=== PATIENT | male | born 1935 ===

== ENCOUNTER → 2021-02-25 13:45 | Outpatient (BNVA) | payer MEDICARE, OTHER, SELFPAY | PROVIDERS: Family Provider Family Medicine; Visit Provider Orthopaedic Surgery | DX: M54.50 Low back pain, unspecified (principal) | CPT/HCPCS: 72110 ==

== ENCOUNTER 2021-03-10 15:37 | Outpatient (CLI) | payer MEDICARE, OTHER, SELFPAY ==
--- NOTE | 2021-03-10 16:00 | MR_ITS ---
WS: [id number] MRI LUMBAR SPINE NONCONTRAST HISTORY: M54.50 - Low back pain, unspecified COMPARISON: None available. TECHNIQUE: Sagittal and axial multisequence imaging is submitted. 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 Reversal the cervical lordosis centered at C4-5 with severe disc space narrowing. Encroachment upon the ventr al cervical canal. There is a small caliber thoracic canal with multilevel stenoses due to degenerati ve disease. Straightening of the normal lumbar lordosis with LEFT curvature. 5 lumbar type vertebral bodies. The S1 vertebral body is partially lumbarized. Severe degenerative disc disease and disc space narrowing throughout the lumbar spine. There is osteo phytosis and disc bulging and marked facet arthritis. L2 retrolisthesis by 5 mm. Conus terminates normally at L1-2 disc level. L1-L2: Mild annular disc bulging and osteophytic ridging. Shallow central disc protrusion effacing th e ventral CSF. Mild central, subarticular foraminal stenosis. L2-L3: Severe annular disc bulging and osteophytic ridging with moderate ligamentum flavum and facet arthritis. Significant deformity upon the thecal sac with effacement of CSF. Moderate to severe centr al and bilateral subarticular recess stenosis. Moderate foraminal stenosis. There is significant encr oachment upon the traversing L3 nerve roots. L3-L4: Diffuse osteophytic ridging and mild annular disc bulging. Central annular fissure. Severe lig amentum flavum and facet joint arthritis. There is encroachment into the thecal sac causing moderate central and subarticular recess stenosis. Significant encroachment upon the traversing L4 nerve roots . Mild foraminal stenosis. L4-L5: Marked osteophytic ridging and annular disc bulging with severe ligamentum flavum hypertrophy and facet arthritis. Significant deformity encroachment upon the ventral canal. Obliteration of CSF a nd deformity of the nerve roots within the cord. Severe central, bilateral subarticular recess and mo derate foraminal stenosis. There is severe deformity and encroachment upon the traversing L5 nerve ro ots. L5-S1: Marked osteophytic ridging. Ligamentum flavum and facet disease and disc disease. Severe centr al, bilateral subarticular recess and foraminal stenosis. There are disc protrusions in the foramen b ilaterally. There is a rudimentary S1-S2 disc without significant stenosis. Bilateral renal cysts. MR/MR lumbar spine wo con* [id number] IMPRESSION: 1. Advanced degenerative spondylitic changes throughout the lumbar spine. 2. Severe central, bilateral subarticular recess and foraminal stenosis at L5- S1 with marked deformity of the thecal sac and traversing S1 nerve roots. 3. Severe central, bilateral subarticular recess and moderate foraminal stenos is at L4-5. Significant deformity and encroachment upon the traversing L5 nerve roots. 4. Moderate central and subarticular recess stenosis at L3-4 with significant encroachment upon the traversing L4 nerve roots. 5. Moderate to severe central with bilateral subarticular recess stenosis and moderate foraminal stenosis at L2-3 with significant encroachment upon the maira ersing L3 nerve roots. 6. Mild central and subarticular recess stenosis at L1-2.
== END 2021-03-10 15:38 | disposition home or self-care (01) ==
LOC: RADSHAW 15:46
PROVIDERS: PCP Family Medicine; Visit Provider Orthopaedic Surgery
DX: M54.50 Low back pain, unspecified (principal); M48.07 Spinal stenosis, lumbosacral region; M48.061 Spinal stenosis, lumbar region without neurogenic claudication
CPT/HCPCS: 72148

== ENCOUNTER → 2021-03-30 00:01 | Outpatient (BNVA) | payer MEDICARE, OTHER, SELFPAY | PROVIDERS: PCP Family Medicine; Visit Provider Orthopaedic Surgery | DX: Z20.822 Contact with and (suspected) exposure to COVID-19 (principal); Z01.818 Encounter for other preprocedural examination | CPT/HCPCS: 87635 ==

== ENCOUNTER 2021-04-02 05:50 | Day surgery (SDC) | payer MEDICARE, OTHER, SELFPAY ==
--- NOTE | 2021-03-29 10:14 | ECG_ITS ---
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
[2021-03-29 10:37] VITALS: BMI 22.0
--- NOTE | 2021-03-29 11:36 | ANES.PREANE2 ---
Pre-Anesthetic Assessment Pre-Anesthetic Assessment: Height/Weight: Height 1.73 m Weight 65.771 kg Preop Diagnosis: Lumbar stenosis w/ neurogenic claudication Proposed Procedure: Operation Date: 04/02/21 07:00 Proposed Procedures p Lumbar Spine Decompression L3/4 L4/5 M48.062 [id number](Not Applicable) - Lion H Bonita, DO Was Beta Mariusz taken within 24 hours: N/A Was Clonidine taken within 24 hours: N/A Social: Social History: No alcohol and No tobacco Exam: Pre-Anes Outpt Exam: alert, oriented x 3, clear to auscultation bilaterally and regular rate & rhythm Airway: Submandibular: WNL Cervical ROM: Other (Limited head extension, normal flexion, limited rotation and sidebending of neck) MP: 2 Additional comments: Upper dentures History/ROS: Other (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) Pulmonary: Pulmonary: None reported CV/HEM: CV/HEM: None reported : : None reported Hepatic: Hepatic: None reported GI: GI: None reported Metabolic: Metabolic: None reported Musc/skel: Musc/skel: Lower Back Pain and OA/DJD Anesthetic Plan: ASA status: 2 Anesthesia: Anesthesia Evaluation Risk of > 500 ml blood loss (7ml/kg in children): No PFSH Anesthesia PFSH: Family History Other Hypertension Social History Alcohol intake: never Adopted: No Caregiver/support person: Yes Lives independently: Yes Household members: spouse Housing: House Marital status: Number of children: 3 Number of grandchildren: 5 service: No Current occupational status: retired Pets and animals: Yes History of recent travel: No Special ariel needs: No Agree to transfusion: Yes Data Anesthesia Cardiac Studies: No Data to Display
[2021-04-02] VITALS (9 sets, daily range): BP systolic 145–181; BP diastolic 75–88; PULSE 65–102; RESP 9–20; TEMP 36.6–36.8; O2SAT 93–98
--- NOTE | 2021-04-02 | SCC_ITS ---
Procedure Done: 1. Bilateral L3/4 laminectomy with partial facetectomies 2. Bilateral L4/5 laminectomy with partial facetectomies 3. Bilateral L5/S1 laminectomy with partial facetectomies 41.6 seconds of fluoroscopic guidance, for a cumulative dose of 13.30 mGy, was provided to Dr. Mesa by the radiology department. C-arm images of the lumbar spine were saved for the patient's permanent record. [facility]
--- NOTE | 2021-04-02 | XR_ITS ---
WS: [id number] Lumbar spine, C-arm fluoroscopy, 04/02/2021 Clinical Data: Decompression, or pics Comparison: None. Findings: Dr. Mesa performed a lumbar decompression. XR/XR lumbar spine 1V [id number] Impression: Lumbar decompression.
[2021-04-02] MEDS: sodium chloride 0.9% 1,000 ML 30 ML IV (06:27)
--- NOTE | 2021-04-02 06:45 | P.ANESUD_ITS ---
Pre-Anesthetic Update Pre-Anesthetic Assessment: Date of Surgery/Procedure: 04/02/21 Preop Venessa gnosis: Lumbar stenosis L3-S1 Proposed Procedure: Operation Date: 04/02/21 07:00 Proposed Procedures p Lumbar Spine Decompression L3/4 L4/5 M48.062 [id number](Not Applicable) - Lion Mesa, DO Any changes to Pre-Anesthetic Assessment?: No Last Intake: Intake Last Liquid Date 04/01/21 Last Liquid Time 19:00 Last Solid Date 04/01/21 Last Solid Time 19:00 Vitals: Temperature 97.8 F 04/02/21 06:06 Temperature Source Temporal Artery S can 04/02/21 06:06 Pulse Rate 65 04/02/21 06:06 Respiratory Rate 18 04/02/21 06:06 Blood Pressure 175/81 04/02/21 06:06 Blood Pressure Jordana n 112 04/02/21 06:06 Pulse Oximetry 97 04/02/21 06:06 Oxygen Delivery Me thod 04/02/21 06:12 Exam: Pre-Anes Outpt Exam: alert, oriented x 3, clear to auscultation bilaterally and regular rate & rhythm Cardiac Studies: No Data to Display
--- NOTE | 2021-04-02 06:49 | W.PM.OPSUD ---
Surgery/Procedure H&P Update DATE OF PROCEDURE: April 02, 2021 DATE H&P PERFORMED: 03/11/21 H&P UPDATE INFORMATION: I have reviewed H&P completed within last 30 days, I have examined patient prior to procedure and No changes to prior documentation PREOP DIAGNOSIS: Lumbar stenosis L3-S1 PLANNED PROCEDURE: Operation Date: 04/02/21 07:00 Proposed Procedures p Lumbar Spine Decompression L3/4 L4/5 M48.062 [id number](Not Applicable) - Lion Mesa DO
[2021-04-02] MEDS: clindamycin 900 MG/50 ML PREMIX 100 MG IV (06:59)
--- NOTE | 2021-04-02 09:50 | SUR.PHASEI ---
pt awake alert oriented to place and name, vss pt able to move bilat feet to command, monitor SR , not ectopy noted. pt on RA trial.
--- NOTE | 2021-04-02 09:53 | PM.OP ---
Operative Report Date of procedure: April 02, 2021 Pre-op Diagnosis: Lumbar stenosis with neurogenic claudication Post-op diagnosis: same Procedure Done: 1. Bilateral L3/4 laminectomy with partial facetectomies 2. Bilateral L4/5 laminectomy with partial facetectomies 3. Bilateral L5/S1 laminectomy with partial facetectomies Surgeon: Lion Mesa External Relations Director: Tyrone Weldon External Relations Director: The surgical endoscopist, Tyrone Weldon, PAC was needed for his expertise under the microscope. He was important and necessary throughout the procedure to complete in a safe and timely manner. He assisted with patient positioning prepping and draping tissue retraction suctioning of the operative field protection of the dural sac and tissue closure Anesthesia: General Estimated blood loss (mL): 25 Condition: stable Disposition: PACU Procedure: 1. Bilateral L3/4 laminectomy with partial facetectomies 2. Bilateral L4/5 laminectomy with partial facetectomies 3. Bilateral L5/S1 laminectomy with partial facetectomies Patient is brought to the operative suite. After undergoing anesthesia they are placed in the prone position. All areas of impingement are well padded. Patient is then prepped and draped in the normal sterile fashion. A skin incision is made over the L3/4 level. This is confirmed under c-arm guidance. A series of dilators are passed and the tubular retractor is docked on the L3 lamina. A bovie is used to clear the soft tissue off the lamina and the L 3/4 facet joint. A high speed marques is then used to perform the laminectomy and take down the medial aspect of the L 3/4 facet joint. A kerrison rongeure was then used to take down the remaining lamina and smooth the edged of the laminectomy up to the point where the ligamentum flavum attaches. Attention was then brought to the medial aspect of the facet joint. The remaining medial aspect of the superior and inferior aspect of the facet joint were taken down with the kerrison from the pedicle of L3 to L 4. The facet joint had significant hypertrophy. Attention was then brought to the Ligamentum Flavum. The ligament was taken down from the lamina of L3 to L4 and out medially to the remaining facet joint. The ligament was thick. The dura was then exposed. The dura was in good repair. The L3 nerve was then traced with a curette out the L3/4 foramen and found to be adequately decompressed. The L4 nerve was traced with a curette around the L4 pedicle. The lateral recess was opened with a kerrison helping to further decompress the L4 nerve. The tubular retractor was then tilted to the contralateral side. The bovie was used to take down the soft tissue on the spinous process. The high speed marques was used to take down the spinous process and then the contralateral lamina of L3. The kerrison rongeur was used to take down the remaining lamina to the point where the ligamentum flavum attached and the ligamentum flavum was taken down from L3 to L4. The kerrison rongeur was then used to reach across and take down the medial aspect of the contralateral L3/4 facet joint.The currete was used to trace the contralateral L3 nerve out the L3/4 foramen to make sure it was decompressed adequatesly and the L4 was traced around the L4 pedicle. The lateral recess was opened further with the kerrison to ensure the L4 is adequately decompressed. Wound is then irrigated copiously with saline and surgiflo is used to stop any bleeding. The tubular retractor is removed and A skin incision is made over the L4/5 level. This is confirmed under c-arm guidance. A series of dilators are passed and the tubular retractor is docked on the L4 lamina. A bovie is used to clear the soft tissue off the lamina and the L 4/5 facet joint. A high speed marques is then used to perform the laminectomy and take down the medial aspect of the L 4/5 facet joint. A kerrison rongeure was then used to take down the remaining lamina and smooth the edged of the laminectomy up to the point where the ligamentum flavum attaches. Attention was then brought to the medial aspect of the facet joint. The remaining medial aspect of the superior and inferior aspect of the facet joint were taken down with the kerrison from the pedicle of L4 to L 5. The facet joint had significant hypertrophy. Attention was then brought to the Ligamentum Flavum. The ligament was taken down from the lamina of L4 to L5 and out medially to the remaining facet joint. The ligament was thick. The dura was then exposed. The dura was in good repair. The L4 nerve was then traced with a curette out the L4/5 foramen and found to be adequately decompressed. The L5 nerve was traced with a curette around the L5 pedicle. The lateral recess was opened with a kerrison helping to further decompress the L5 nerve. The tubular retractor was then tilted to the contralateral side. The bovie was used to take down the soft tissue on the spinous process. The high speed marques was used to take down the spinous process and then the contralateral lamina of L4. The kerrison rongeur was used to take down the remaining lamina to the point where the ligamentum flavum attached and the ligamentum flavum was taken down from L4 to L5. The kerrison rongeur was then used to reach across and take down the medial aspect of the contralateral L4/5 facet joint.The currete was used to trace the contralateral L4 nerve out the L4/5 foramen to make sure it was decompressed adequatesly and the L5 was traced around the L5 pedicle. The lateral recess was opened further with the kerrison to ensure the L5 is adequately decompressed. Wound is then irrigated copiously with saline and surgiflo is used to stop any bleeding. The tubular retractor is removed and A skin incision is made over the L5/S1 level. This is confirmed under c-arm guidance. A series of dilators are passed and the tubular retractor is docked on the L5 lamina. A bovie is used to clear the soft tissue off the lamina and the L 5/S1 facet joint. A high speed marques is then used to perform the laminectomy and take down the medial aspect of the L 5/S1 facet joint. A kerrison rongeure was then used to take down the remaining lamina and smooth the edged of the laminectomy up to the point where the ligamentum flavum attaches. Attention was then brought to the medial aspect of the facet joint. The remaining medial aspect of the superior and inferior aspect of the facet joint were taken down with the kerrison from the pedicle of L5 to S1. The facet joint had significant hypertrophy. Attention was then brought to the Ligamentum Flavum. The ligament was taken down from the lamina of L5 to S1 and out medially to the remaining facet joint. The ligament was thick. The dura was then exposed. The dura was in good repair. The L5 nerve was then traced with a curette out the L5/S1 foramen and found to be adequately decompressed. The S1 nerve was traced with a curette around the S1 pedicle. The lateral recess was opened with a kerrison helping to further decompress the S1 nerve. The tubular retractor was then tilted to the contralateral side. The bovie was used to take down the soft tissue on the spinous process. The high speed marques was used to take down the spinous process and then the contralateral lamina of L5. The kerrison rongeur was used to take down the remaining lamina to the point where the ligamentum flavum attached and the ligamentum flavum was taken down from L5 to S1. The kerrison rongeur was then used to reach across and take down the medial aspect of the contralateral L5/S1 facet joint.The currete was used to trace the contralateral L5 nerve out the L5/S1 foramen to make sure it was decompressed adequatesly and the S1 was traced around the S1 pedicle. The lateral recess was opened further with the kerrison to ensure the S1 is adequately decompressed. Wound is then irrigated copiously with saline and surgiflo is used to stop any bleeding. The tubular retractor is removed and the wound is closed with vicryl and monocryl suture. Glue is then used to protect the wound. A sterile dressing is then placed. Patient was then placed in the supine position and transferred to the PACU in stable condition.
[2021-04-02] MEDS: HYDROcodone-acetaminophen 5-325 mg Tablet 1 TAB PO (10:45)
--- NOTE | 2021-04-02 12:11 | ANE.PACU2 ---
Inpatient post-anesthesia follow up: Airway intact: Yes Vital signs: Temperature 98.2 F Pulse Rate 90 Respiratory Rate 18 Blood Pressure 148/88 Pulse Oximetry 95 Oxygen Delivery Me thod Room Air Oxygen Flow Rate 6 Fraction of Inspir ed Oxygen Hydration adequate: Yes Nausea and vomiting: No Pain level: 3 Mental status: Baseline
== END 2021-04-02 10:50 | disposition home or self-care (01) ==
PROVIDERS: PCP Family Medicine; Visit Provider Orthopaedic Surgery
PROC: (CPT 63005; principal; 2021-04-02 07:00)
DX: M48.062 Spinal stenosis, lumbar region with neurogenic claudication (principal); M51.36 Other intervertebral disc degeneration, lumbar region; M79.661 Pain in right lower leg; M79.662 Pain in left lower leg; Z88.0 Allergy status to penicillin; Z79.82 Long term (current) use of aspirin
CPT/HCPCS: 63047; 63048 ×2; 72020; 76000; 93005; J1100; J2405; J2704; J2710; J3010; J3490; J7030

== ENCOUNTER → 2021-04-07 16:53 | Outpatient (BNVA) | payer MEDICARE, OTHER, SELFPAY | PROVIDERS: PCP Family Medicine; Visit Provider Nurse Practitioner Family | DX: R33.9 Retention of urine, unspecified (principal) | CPT/HCPCS: 81003 ==

== ENCOUNTER → 2021-09-14 10:24 | Outpatient (BNVA) | payer MEDICARE, OTHER, SELFPAY | PROVIDERS: PCP Family Medicine; Visit Provider Urology | DX: N40.1 Benign prostatic hyperplasia with lower urinary tract symptoms (principal); N30.80 Other cystitis without hematuria; R82.81 Pyuria; R82.71 Bacteriuria; N99.89 Other postprocedural complications and disorders of genitourinary system; R33.8 Other retention of urine | CPT/HCPCS: 51798; 81003; 87077; 87086; 87186; 99213 ==

== ENCOUNTER → 2022-09-13 08:59 | Outpatient (BNVA) | payer MEDICARE, OTHER, SELFPAY | PROVIDERS: PCP Family Medicine; Visit Provider Urology | DX: N40.1 Benign prostatic hyperplasia with lower urinary tract symptoms (principal); R33.9 Retention of urine, unspecified | CPT/HCPCS: 51741; 51798; 81003; 99213 ==

== ENCOUNTER 2022-10-02 18:56 | Inpatient (IN) | payer MEDICARE, OTHER, SELFPAY ==
[2022-10-02] VITALS (11 sets, daily range): BP systolic 135–168; BP diastolic 68–84; PULSE 82–92; RESP 12–29; TEMP 36.9–38.8; O2SAT 94–98; BMI 22.0
--- NOTE | 2022-10-02 19:42 | CTR_ITS ---
PROCEDURE INFORMATION: Exam: CT Cervical Spine Without Contrast Exam date and time: 10/02/2022 7:58 PM Age: 87 years old Clinical indication: Injury or trauma; Fall; Blunt trauma; Patient HX: Patient fell at home onto bathroom floor landing on RT side. C/O neck pain. Fever. ; Additional info: Fall neck pain TECHNIQUE: Imaging protocol: Computed tomography of the cervical spine without contrast. Radiation optimization: All CT scans at this facility use at least one of these dose optimization techniques: automated exposure control; mA and/or kV adjustment per patient size (includes targeted exams where dose is matched to clinical indication); or iterative reconstruction. REPORTING DATA: Count of CT and Cardiac NM exams in prior 12 months: This patient has received 0 known CTs and 0 known cardiac nuclear medicine studies in the 12 months prior to the current study. COMPARISON: CT head wo con* [id number] 10/02/2022 7:56 PM RADIATION DOSE METRICS: Total DLP (mGy-cm): 137.87 FINDINGS: Bones/joints: Multilevel disc space narrowing and degenerative disc calcifications throughout the spine. C2-C3: No significant disc bulge or herniation. No severe spinal canal stenosis. No significant neural foraminal narrowing. C3-C4: No significant disc bulge or herniation. No severe spinal canal stenosis. No significant neural foraminal narrowing. C4-C5: No significant disc bulge or herniation. No severe spinal canal stenosis. No significant neural foraminal narrowing. C5-C6: No significant disc bulge or herniation. No severe spinal canal stenosis. No significant neural foraminal narrowing. C6-C7: No significant disc bulge or herniation. No severe spinal canal stenosis. No significant neural foraminal narrowing. C7-T1: No significant disc bulge or herniation. No severe spinal canal stenosis. No significant neural foraminal narrowing. Lungs: Lung apices are normal. Soft tissues: Unremarkable. CT/CT cervical spin wo con* [id number] IMPRESSION: 1. Negative for fracture or dislocation. 2. Multilevel disc space narrowing and degenerative disc calcifications throughout the spine.
--- NOTE | 2022-10-02 19:42 | CTR_ITS ---
PROCEDURE INFORMATION: Exam: CT Chest Without Contrast; Diagnostic Exam date and time: 10/02/2022 8:01 PM Age: 87 years old Clinical indication: Injury or trauma; Fall; Blunt trauma (contusions or hematomas); Patient HX: Patient fell at home onto bathroom floor landing on RT side. C/O RT sided rib pain. Fever. ; Additional info: Fall right sided rib pain TECHNIQUE: Imaging protocol: Diagnostic computed tomography of the chest without contrast. Radiation optimization: All CT scans at this facility use at least one of these dose optimization techniques: automated exposure control; mA and/or kV adjustment per patient size (includes targeted exams where dose is matched to clinical indication); or iterative reconstruction. REPORTING DATA: Count of CT and Cardiac NM exams in prior 12 months: This patient has received 0 known CTs and 0 known cardiac nuclear medicine studies in the 12 months prior to the current study. COMPARISON: CT cervical spin wo con* [id number] 10/02/2022 7:58 PM RADIATION DOSE METRICS: Total DLP (mGy-cm): 1012.68 FINDINGS: Lungs: Moderate right pneumothorax with 2.3 cm separation between the lung and pleura, anteriorly. Pleural spaces: See Lungs finding. Heart: Cardiomegaly. Coronary arteries: Coronary artery atherosclerotic calcifications. Lymph nodes: Scattered prominent subcentimeter short axis mediastinal lymph nodes, nonspecific. Vasculature: Patchy bilateral dependent lower lobe atelectasis versus pulmonary contusions. 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 Kidneys and ureters: Bilateral renal cysts, negative for follow-up advised. Stomach and bowel: Diverticulosis without diverticulitis Bones/joints: Right lateral 7th and possibly 8th rib fractures. Soft tissues: Unremarkable. CT/CT chest wo con [id number] IMPRESSION: 1. Moderate right pneumothorax with 2.3 cm separation between the lung and pleura, anteriorly. 2. Patchy bilateral dependent lower lobe atelectasis versus pulmonary contusions. 3. Right lateral 7th and possibly 8th rib fractures. 4. 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 5. Cardiomegaly. 6. Coronary artery atherosclerotic calcifications. 7. Scattered prominent subcentimeter short axis mediastinal lymph nodes, nonspecific. 8. Bilateral renal cysts, negative for follow-up advised. 9. Diverticulosis without diverticulitis COMMENTS: Consistent with the [employer]'s Incidental Findings Committee white paper (J Am Megan Radiol 2018): Any incidental renal lesion less than 1 cm or classified as too small to characterize, or any incidental cystic renal lesion characterized as simple-appearing, is likely benign. No follow-up imaging is recommended for these lesions per consensus recommendations based on imaging criteria.
--- NOTE | 2022-10-02 19:42 | CTR_ITS ---
PROCEDURE INFORMATION: Exam: CT Head Without Contrast Exam date and time: 10/02/2022 7:56 PM Age: 87 years old Clinical indication: Injury or trauma; Fall; Blunt trauma (contusions or hematomas); Patient HX: Patient fell at home onto bathroom floor landing on RT side. Fever. ; Additional info: Fall head inj TECHNIQUE: Imaging protocol: Computed tomography of the head without contrast. Radiation optimization: All CT scans at this facility use at least one of these dose optimization techniques: automated exposure control; mA and/or kV adjustment per patient size (includes targeted exams where dose is matched to clinical indication); or iterative reconstruction. REPORTING DATA: Count of CT and Cardiac NM exams in prior 12 months: This patient has received 0 known CTs and 0 known cardiac nuclear medicine studies in the 12 months prior to the current study. COMPARISON: No relevant prior studies available. RADIATION DOSE METRICS: Total DLP (mGy-cm): 1012.68 FINDINGS: Brain: No acute infarct. No hemorrhage. Unremarkable white matter for age. No mass effect. Cerebral ventricles: No ventriculomegaly. Paranasal sinuses: Visualized sinuses are unremarkable. No fluid levels. Mastoid air cells: Visualized mastoid air cells are well aerated. Bones/joints: Unremarkable. No acute fracture. Soft tissues: Unremarkable. CT/CT head wo con* [id number] IMPRESSION: No acute intracranial abnormality.
--- NOTE | 2022-10-02 19:58 | ED_ITS ---
HPI - Fall General: Chief Complaint: Fall Stated Complaint: Fall, fever Time Seen by Provider: 10/02/22 19:15 Source: patient History of Present Illness: 87-year-old male gentleman with multiple complaints today after a fall in his bathroom. He states that he fell in his bathroom, striking his right side on the shower. He complains of pain to his right chest wall, worse with deep breathing and cough. He also complains of neck pain. He believes he may have hit his head, but is not sure. He states that he does not have a headache. He also complains of foul-smelling strong urine. His states that he had a fever, measured by a neighbor this afternoon at 104 . He is afebrile here. complaint: fall Onset (ago): hour(s) (2 PM) Fall from: standing Fall witnessed: yes, by family Place fall occurred: home Loss of consciousness: None Prolonged down time: no Symptoms prior to fall: none Context: other (Loss of balance) Location of injury: head, neck and chest Quality: stabbing and aching Associated symptoms-after fall: Reports chest pain, neck pain and weakness (Chronic); Denies abdominal pain, confusion, headache(s), hematuria, lightheadedness, numbness or short of breath Review of Systems Const: Reports: fever(s); Denies: chills or body aches Eyes: Denies: change in vision ENMT: Denies: throat pain Card: Reports: chest pain; Denies: lightheadedness Resp: Reports: productive cough, non-productive cough and pain on inspiration; Denies: dyspnea GI: Denies: abdominal pain : Reports: urinary frequency and other (Foul-smelling urine); Denies: flank pain, difficulty urinating, dysuria or hematuria Musc: Reports: neck pain Neuro: Denies: headache(s) or confusion PFSH ED PFSH: Medical History 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 Bladder followed by [facility] initiated Family History Father , AT 74 Heart disease Mother , AT 96 Stroke Other Hypertension Social History Smoking and tobacco status: never smoked Alcohol intake: never Substance/Drug Use: never Marital status: Current occupational status: retired Physical Exam Const: COMMON NORMALS: no acute distress GENERAL APPEARANCE: cooperative and frail appearing; not ill appearing HENMT: COMMON NORMALS: normocephalic, atraumatic and Normal external nose present HEAD & SCALP: normocephalic and atraumatic FACE & SINUS: normal facial exam and face symmetric NOSE: Normal external nose present Eye: COMMON NORMALS: Equal, round and reactive pupils present and EOMs intact bilaterally PUPIL: Yes Equal, round and reactive pupils present Neck/C-Spine: GENERAL: Yes trachea midline Chest: CHEST: Yes Symmetrical chest wall rise and Yes tenderness (Right chest wall laterally) Resp: COMMON NORMALS: normal respiratory effort, No retractions, No use of accessory muscles and clear to auscultation bilaterally AUSCULTATION: clear to auscultation bilaterally Cardio: COMMON NORMALS: regular rate and regular rhythm RATE: regular rate RHYTHM: regular rhythm GI: COMMON NORMALS: Normal to inspection, nondistended, normoactive bowel sounds present Back/Pelvis: THORACIC SPINE/UPPER BACK: No thoracic spinal tenderness LUMBAR SPINE/LOWER BACK: No lumbar spinal tenderness Extremity: COMMON NORMALS: normal to inspection and no pedal edema NARRATIVE EXTREMITY EXAM: Atraumatic Neuro: TIGIST COMA SCALE: document GCS findings [place] coma scale eye opening: Spontaneous [place] coma scale verbal response: Orientated [place] coma scale motor response: Obey commands [place] coma scale total score: 15 SENSORY EXAM: Yes extremities (intact) Psych: COMMON NORMALS: speech normal SPEECH: Yes normal speech Skin: COMMON NORMALS: no rashes or lesions noted GENERAL SKIN EXAM: no rashes or lesions noted Course Vital Signs: Vital signs: Vital Signs Temperature 99.3 F 10/02/22 22:37 Pulse Rate 82 10/02/22 23:15 Respiratory Rate 22 H 10/02/22 23:15 Blood Pressure 163/68 10/02/22 23:15 Pulse Oximetry 97 10/02/22 23:15 Oxygen Delivery Me thod Nasal Cannula 10/02/22 23:15 Oxygen Flow Rate 3 10/02/22 23:15 MDM - Fall Medical Decision Making Spoke with cardiothoracic surgery. The patient has a right pneumothorax that is 20 to 25%. His saturation on room air is 95%. He is in no respiratory distress. His blood pressure is normal. I am reluctant to put an emergent chest tube in the patient with stable vital signs he was 87 years old. CTS agrees. They will consult on the patient, be available for worsening respiratory status, and recheck a chest x-ray in the morning to determine if pneumothorax is improving or worsening. If worsening, elective Thora vent placement could happen at that point versus expectant management The patient does have a urinary tract infection with a fever. His white blood cell count is 12.6. Lactic acid is pending. CRP is 44. He is given IV L evaquin here due to a penicillin allergy. Blood cultures been drawn prior. He will be admitted for the above. Spoke with hospitalist who agrees to admit. Lab Data 10/02/22 20:30 10/02/22 20:30 Radiology Impressions Cervical Spine CT 10/02/22 19:42 IMPRESSION: 1. Negative for fracture or dislocation. 2. Multilevel disc space narrowing and degenerative disc calcifications throughout the spine. Chest CT 10/02/22 19:42 IMPRESSION: 1. Moderate right pneumothorax with 2.3 cm separation between the lung and pleura, anteriorly. 2. Patchy bilateral dependent lower lobe atelectasis versus pulmonary contusions. 3. Right lateral 7th and possibly 8th rib fractures. 4. 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 5. Cardiomegaly. 6. Coronary artery atherosclerotic calcifications. 7. Scattered prominent subcentimeter short axis mediastinal lymph nodes, nonspecific. 8. Bilateral renal cysts, negative for follow-up advised. 9. Diverticulosis without diverticulitis COMMENTS: Consistent with the [employer]'s Incidental Findings Committee white paper (J Am Megan Radiol 2018): Any incidental renal lesion less than 1 cm or classified as too small to characterize, or any incidental cystic renal lesion characterized as simple-appearing, is likely benign. No follow-up imaging is recommended for these lesions per consensus recommendations based on imaging criteria. ADDENDUM: 10/02/222024 THIS REPORT CONTAINS FINDINGS THAT MAY BE CRITICAL TO PATIENT CARE. The findings were verbally communicated via telephone conference with NICK VIERA at 8:22 PM CDT on 10/02/2022. The findings were acknowledged and understood. Head CT 10/02/22 19:42 IMPRESSION: No acute intracranial abnormality. Laboratory Results WBC 12.6 10^3/uL (4.0-10.0) H 10/02/22 20: RBC 4.88 10^6/uL (4.1-5.3) 10/02/22 20:30 Hgb 15.5 g/dL (11.7-16.6) 10/02/22 20: Hct 45.7 % (42.0-52.0) 10/02/22 20: MCV 93.6 fl (80-94) 10/02/22 20: MCH 31.8 pg (28.0-34.0) 10/02/22 20: MCHC 33.9 g/dL (30.0-36.0) 10/02/22 20: RDW 13.8 % (12.1-15.1) 10/02/22 20: Plt Count 128 10^3/cmm (130-400) L 10/02/22: MPV 9.0 fL (7.4-10.4) 10/02/22 20: Neut % (Auto) 80.1 % 10/02/22 20: Lymph % (Auto) 12.8 % 10/02/22 20: [place] % (Auto) 6.1 % 10/02/22 20: Eos % (Auto) 0.2 % 10/02/22 20: Baso % (Auto) 0.2 % 10/02/22 20:30 Neut # (Auto) 10.06 10^3/uL (1.8-7.7) H 10/02/22 20: Lymph # (Auto) 1.6 10^3/uL (0.8-4.8) 10/02/22 20:30 [place] # (Auto) 0.8 10^3/uL (0.2-0.9) 10/02/22 20: Eos # (Auto) 0.0 10^3/uL (0.0-0.8) 10/02/22 20: Baso # (Auto) 0.0 10^3/uL (0.0-0.1) 10/02/22 20: Nucleated RBC % (auto) 0 % 10/02/22 20:30 Nucleated RBCs # 0.0 /100WBC 10/02/22 20:30 Sodium 136 mmol/L (136-145) 10/02/22 20:30 Potassium 4.4 mmol/L (3.5-5.1) 10/02/22 20:30 Chloride 103 mmol/L (98-107) 10/02/22 20:30 Carbon Dioxide 24 mmol/L (22-29) 10/02/22 20:30 Anion Gap 13.4 (5-19) 10/02/22 20:30 BUN 25 mg/dL (8-23) H 10/02/22 20:30 Creatinine 1.1 mg/dL (0.7-1.2) 10/02/22 20:30 GFR Calculation Not Reportable 10/02/22 20:30 Glucose 114 mg/dL (65-115) 10/02/22 20:30 Calculated Osmolality 287 mOsm/kg (285-295) 10/02/22 20:30 Lactic Acid 0.9 mmol/L (0.5-2.2) 10/02/22 20:30 Calcium 8.5 mg/dL (8.5-10.5) 10/02/22 20:30 Total Bilirubin 1.0 mg/dL (0.15-1.2) 10/02/22 20:30 AST 45 U/L (0-40) H 10/02/22 20:30 ALT 34 U/L (0-41) 10/02/22 20:30 Alkaline Phosphatase 91 U/L (40-130) 10/02/22 20:30 Creatine Kinase 99 U/L (39-308) 10/02/22 20:30 C-Reactive Protein 44.4 mg/L (0.0-4.9) H 10/02/22 20:30 Total Protein 6.5 g/dL (6.6-8.7) L 10/02/22 20:30 Albumin 4.3 g/dL (3.5-5.2) 10/02/22 20:30 Globulin 2.2 g/dL (1.3-4.6) 10/02/22 20:30 Urine Color Yellow (Yellow) 10/02/22 19:18 Urine Appearance Cloudy (CLEAR) A 10/02/22 19:18 Urine pH 8 (5-7) H 10/02/22 19:18 Ur Specific [place] 1.010 (1.005-1.030) 10/02/22 19:18 Urine Protein Trace (Negative) 10/02/22 19:18 Urine Glucose (UA) Norm (Normal) 10/02/22 19:18 Urine Ketones Negative (Negative) 10/02/22 19:18 Urine Blood 2+ (Negative) H 10/02/22 19:18 Urine Nitrate Negative (Negative) 10/02/22 19:18 Urine Bilirubin Neg (Negative) 10/02/22 19:18 Urine Urobilinogen 8 mg/dL (Negative) H 10/02/22 19:18 Ur Leukocyte Esterase 1+ (Negative) H 10/02/22 19:18 Urine RBC 0-4 /hpf (0-2) H 10/02/22 19:18 Urine WBC 80-100 /hpf (0-5) H 10/02/22 19:18 Ur Squamous Epith Cells 0-4 /hpf (0-5) H 10/02/22 19:18 Amorphous Sediment Not Reportable 10/02/22 19:18 Urine Bacteria 4+ /hpf (NONE) H 10/02/22 19:18 Discharge Plan Discharge Patient Disposition: Admitted As Inpatient Admit Provider: Jay Zapata Clinical Impression: Traumatic fracture of ribs of right side with pneumothorax, Urinary tract infection Condition: Fair Coding Level of Care Code ED Chimney Repairer for Prabhjot Rene
[2022-10-02 20:40] LABS: Basophils % 0.2 %; Eosinophils % 0.2 %; Hematocrit 45.7 % (42.0-52.0); Hemoglobin 15.5 g/dL (11.7-16.6); Lymphocytes # 1.6 10^3/uL (0.8-4.8); Lymphocytes % 12.8 %; Mean Corpuscular HGB Conc 33.9 g/dL (30.0-36.0); Mean Corpuscular Hemoglobin 31.8 pg (28.0-34.0); Mean Corpuscular Volume 93.6 fl (80-94); Monocytes # 0.8 10^3/uL (0.2-0.9); Monocytes % 6.1 %; Neutrophils # 10.06 10^3/uL (1.8-7.7); Neutrophils % 80.1 %; Nucleated Red Blood Cells % 0 %; Platelet Count 128 10^3/cmm (130-400); Red Blood Count 4.88 10^6/uL (4.1-5.3); Red Cell Distribution Width 13.8 % (12.1-15.1); White Blood Count 12.6 10^3/uL (4.0-10.0)
[2022-10-02 20:46] LABS: Add Urine Microscopic? YES; Bilirubin Urine Neg (Negative); Blood Urine 2+ (Negative); Glucose Urine UA Norm (Normal); Ketones Urine Negative (Negative); Leukocyte Esterase Urine 1+ (Negative); Nitrate Urine Negative (Negative); Protein Urine Trace (Negative); Urine Appearance Cloudy (CLEAR); Urine Color Yellow (Yellow); Urobilinogen Urine 8 mg/dL (Negative); pH Urine 8 (5-7)
[2022-10-02 20:48] LABS: Add Urine Culture? Yes; Bacteria Urine 4+ /hpf; RBC Urine 0-4 /hpf (0-2); Squamous Epithelial Cell Urine 0-4 /hpf (0-5); WBC Urine 80-100 /hpf (0-5)
[2022-10-02 20:53] LABS: Alanine Aminotransferase 34 U/L (0-41); Albumin Level 4.3 g/dL (3.5-5.2); Alkaline Phosphatase 91 U/L (40-130); Anion Gap 13.4 (5-19); Aspartate Amino Transferase 45 U/L (0-40); Blood Urea Nitrogen 25 mg/dL (8-23); C Reactive Protein 44.4 mg/L (0.0-4.9); Calcium 8.5 mg/dL (8.5-10.5); Carbon Dioxide 24 mmol/L (22-29); Chloride 103 mmol/L (98-107); Creatine Phosphokinase 99 U/L (39-308); Globulin 2.2 g/dL (1.3-4.6); Glucose 114 mg/dL (65-115); Osmolality Calculated 287 mOsm/kg (285-295); Potassium 4.4 mmol/L (3.5-5.1); Sodium 136 mmol/L (136-145); Total Protein 6.5 g/dL (6.6-8.7)
[2022-10-02] MEDS: levofloxacin-dextrose 5 % 750 MG/150 ML PREMIX 100 MG IV (22:05)
[2022-10-02 22:23] LABS: Lactic Sepsis W/Reflex 0.9 mmol/L (0.5-2.2)
--- NOTE | 2022-10-02 23:51 | PM.HP ---
Providers/Chief Complaint Admitting Physician: Betsy Chen MD Primary Care Provider: Andrea Carreno MD Chief Complaint: Fall, fever History of Present Illness Roc Arreaga is a 87 year old male with a past medical history of BPH and urinary retention presenting to the emergency room today with chief complaints of sustaining a fall earlier this evening. Patient states that he accidentally fell in the shower and hit the right side of his chest on the bathtub. Thereafter he has been complaining of tenderness over the right chest wall made worse especially by taking a deep breath and coughing. Minimal movement triggers the pain. He is uncertain if he also struck his head. He has been feeling unwell over the past day or so with fever up to 104 Fahrenheit and some subjective chills. Review of Systems General: Reports: 10 or more systems reviewed and unremarkable except in HPI and below Const: Denies: fever(s), chills or body aches Eyes: Denies: change in vision, blurry vision or photophobia ENMT: Reports: hoarseness; Denies: throat pain, enlarged tonsils, odynophagia or nasal congestion Card: Denies: chest pain, palpitations, irregular heart rhythm, edema, swelling of feet/ankles, lightheadedness, pre-syncope, dyspnea on exertion or orthopnea Resp: Denies: dyspnea, productive cough, non-productive cough, wheezing, stridor, pain on inspiration, change in phlegm color, hemoptysis or chest congestion GI: Denies: abdominal pain, nausea, vomiting, hematemesis, coffee ground emesis, dysphagia, heartburn, diarrhea, constipation, GI cramping, change in stool character, hematochezia or melena : Denies: flank pain, dysuria, urinary frequency, urinary urgency, urinary hesitancy or hematuria Musc: Denies: neck pain, back pain, extremity pain, joint swelling, joint warmth or deformity Neuro: Denies: headache(s), numbness in extremities, weakness in extremities, sensory changes, difficulty walking, frequent falls, dizziness, vertigo, behavioral changes, Slurred speech present or seizure-like activity Psych: Denies: anxiety, depression, suicidal ideation or homicidal ideation Endo: Denies: polyuria, polydipsia, tired all the time, cold intolerance or hot flashes [place]/Lymph: Denies: easy bruising or easy bleeding Medications/Allergies Home Medications Medication Instructions Recorded Confirmed Last Taken Type aspirin 325 mg tablet 325 mg PO DAILY 02/25/21 09/13/22 03/30/21 History hydrocodone 5 mg-acetaminophen 325 1 - 2 tab PO .Q4-6H #40 tabs 04/02/21 09/13/22 Unknown Rx mg tablet vitamin B complex (B 1 tab PO DAILY 04/22/21 09/13/22 Unknown History Complex-Vitamin B12 tablet) ciprofloxacin HCl 500 mg tablet 500 mg PO BID #14 tabs 09/14/21 09/13/22 Unknown Rx tamsulosin 0.4 mg capsule See Rx Instructions .Route 09/13/22 09/13/22 Unknown Rx .COMPLEX #90 caps Allergies Allergy/AdvReac Type Severity Reaction Status Date / Time Penicillins Allergy Mild rash-shortness Verified 10/02/22 19:03 of breath PFSH Acute PFSH: Medical History 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 Bladder followed by [facility] initiated Family History Father , AT 74 Heart disease Mother , AT 96 Stroke Other Hypertension Social History Smoking and tobacco status: never smoked Alcohol intake: never Substance/Drug Use: never Marital status: Current occupational status: retired Vitals/I&O/Wt Last Vital Signs Temp 99.3 F 10/02/22 22:37 Pulse 82 10/02/22 23:15 Resp 22 H 10/02/22 23:15 BP 163/68 10/02/22 23:15 Pulse Ox 97 10/02/22 23:15 O2 Del Method Nasal Cannula 10/02/22 23:15 O2 Flow Rate 3 10/02/22 23:15 10/02/22 10/02/22 10/03/22 14:59 22:59 06:59 Output Total 20 / 20 Balance -20 / -20 Weight last 48 hrs Weight 65.771 kg Physical Exam Narrative: General: No acute distress, AO x3 HEENT: PERRLA, pupils bilaterally equal and reactive, pallors not present Chest: Normal vesicular breath sounds, no added sounds, equal good air entry bilaterally CVS: S1-S2 regular, no murmurs, no tachycardia, no gallops, no rubs Abdomen: Soft, nontender, no organomegaly, bowel sounds present Neuro: No focal deficits, no facial deformity, AO x3, power 5/5 in all limbs Data 10/03/22 04:15 10/03/22 04:15 Micro: Microbiology 10/02/22 21:17 Blood Culture - Preliminary Blood SPECIMEN COLLECTED 10/02/22 21:14 Blood Culture - Preliminary Blood SPECIMEN COLLECTED Other data: Radiology Impressions Cervical Spine CT 10/02/22 19:42 IMPRESSION: 1. Negative for fracture or dislocation. 2. Multilevel disc space narrowing and degenerative disc calcifications throughout the spine. Chest CT 10/02/22 19:42 IMPRESSION: 1. Moderate right pneumothorax with 2.3 cm separation between the lung and pleura, anteriorly. 2. Patchy bilateral dependent lower lobe atelectasis versus pulmonary contusions. 3. Right lateral 7th and possibly 8th rib fractures. 4. 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 5. Cardiomegaly. 6. Coronary artery atherosclerotic calcifications. 7. Scattered prominent subcentimeter short axis mediastinal lymph nodes, nonspecific. 8. Bilateral renal cysts, negative for follow-up advised. 9. Diverticulosis without diverticulitis COMMENTS: Consistent with the [employer]'s Incidental Findings Committee white paper (J Am Megan Radiol 2018): Any incidental renal lesion less than 1 cm or classified as too small to characterize, or any incidental cystic renal lesion characterized as simple-appearing, is likely benign. No follow-up imaging is recommended for these lesions per consensus recommendations based on imaging criteria. ADDENDUM: 10/02/222024 THIS REPORT CONTAINS FINDINGS THAT MAY BE CRITICAL TO PATIENT CARE. The findings were verbally communicated via telephone conference with JAIMEE VIERA at 8:22 PM CDT on 10/02/2022. The findings were acknowledged and understood. Head CT 10/02/22 19:42 IMPRESSION: No acute intracranial abnormality. Laboratory Results WBC 13.7 10^3/uL (4.0-10.0) H 10/03/22 04:15 RBC 4.72 10^6/uL (4.1-5.3) 10/03/22 04:15 Hgb 14.7 g/dL (11.7-16.6) 10/03/22 04:15 Hct 43.7 % (42.0-52.0) 10/03/22 04:15 MCV 92.6 fl (80-94) 10/03/22 04:15 MCH 31.1 pg (28.0-34.0) 10/03/22 04:15 MCHC 33.6 g/dL (30.0-36.0) 10/03/22 04:15 RDW 13.8 % (12.1-15.1) 10/03/22 04:15 Plt Count 113 10^3/cmm (130-400) L 10/03/22 04:15 MPV 9.6 fL (7.4-10.4) 10/03/22 04:15 Neut % (Auto) 80.2 % 10/03/22 04:15 Lymph % (Auto) 12.8 % 10/03/22 04:15 [place] % (Auto) 6.3 % 10/03/22 04:15 Eos % (Auto) 0.1 % 10/03/22 04:15 Baso % (Auto) 0.2 % 10/03/22 04:15 Neut # (Auto) 11.02 10^3/uL (1.8-7.7) H 10/03/22 04:15 Lymph # (Auto) 1.8 10^3/uL (0.8-4.8) 10/03/22 04:15 [place] # (Auto) 0.9 10^3/uL (0.2-0.9) 10/03/22 04:15 Eos # (Auto) 0.0 10^3/uL (0.0-0.8) 10/03/22 04:15 Baso # (Auto) 0.0 10^3/uL (0.0-0.1) 10/03/22 04:15 Nucleated RBC % (auto) 0 % 10/03/22 04:15 Nucleated RBCs # 0.0 /100WBC 10/03/22 04:15 Sodium 133 mmol/L (136-145) L 10/03/22 04:15 Potassium 4.1 mmol/L (3.5-5.1) 10/03/22 04:15 Chloride 100 mmol/L (98-107) 10/03/22 04:15 Carbon Dioxide 23 mmol/L (22-29) 10/03/22 04:15 Anion Gap 14.1 (5-19) 10/03/22 04:15 BUN 23 mg/dL (8-23) 10/03/22 04:15 Creatinine 0.9 mg/dL (0.7-1.2) 10/03/22 04:15 GFR Calculation Not Reportable 10/03/22 04:15 Glucose 112 mg/dL (65-115) 10/03/22 04:15 Calculated Osmolality 280 mOsm/kg (285-295) L 10/03/22 04:15 Lactic Acid 0.9 mmol/L (0.5-2.2) 10/02/22 20:30 Calcium 8.7 mg/dL (8.5-10.5) 10/03/22 04:15 Total Bilirubin 1.2 mg/dL (0.15-1.2) 10/03/22 04:15 AST 48 U/L (0-40) H 10/03/22 04:15 ALT 40 U/L (0-41) 10/03/22 04:15 Alkaline Phosphatase 86 U/L (40-130) 10/03/22 04:15 Creatine Kinase 99 U/L (39-308) 10/02/22 20:30 C-Reactive Protein 44.4 mg/L (0.0-4.9) H 10/02/22 20:30 Total Protein 6.2 g/dL (6.6-8.7) L 10/03/22 04:15 Albumin 3.9 g/dL (3.5-5.2) 10/03/22 04:15 Globulin 2.3 g/dL (1.3-4.6) 10/03/22 04:15 Urine Color Yellow (Yellow) 10/02/22 19:18 Urine Appearance Cloudy (CLEAR) A 10/02/22 19:18 Urine pH 8 (5-7) H 10/02/22 19:18 Ur Specific [place] 1.010 (1.005-1.030) 10/02/22 19:18 Urine Protein Trace (Negative) 10/02/22 19:18 Urine Glucose (UA) Norm (Normal) 10/02/22 19:18 Urine Ketones Negative (Negative) 10/02/22 19:18 Urine Blood 2+ (Negative) H 10/02/22 19:18 Urine Nitrate Negative (Negative) 10/02/22 19:18 Urine Bilirubin Neg (Negative) 10/02/22 19:18 Urine Urobilinogen 8 mg/dL (Negative) H 10/02/22 19:18 Ur Leukocyte Esterase 1+ (Negative) H 10/02/22 19:18 Urine RBC 0-4 /hpf (0-2) H 10/02/22 19:18 Urine WBC 80-100 /hpf (0-5) H 10/02/22 19:18 Ur Squamous Epith Cells 0-4 /hpf (0-5) H 10/02/22 19:18 Amorphous Sediment Not Reportable 10/02/22 19:18 Urine Bacteria 4+ /hpf (NONE) H 10/02/22 19:18 Nasal Influ A H1 2008 PCR Not detected (NOT DETECT) 10/02/22 01:45 Adenovirus (PCR) Not detected (NOT DETECT) 10/02/22 01:45 C. pneumoniae DNA (PCR) Not detected (NOT DETECT) 10/02/22 01:45 Coronavirus 229E (PCR) Not detected (NOT DETECT) 10/02/22 01:45 Human Metapneumovir PCR Not detected (NOT DETECT) 10/02/22 01:45 Influenza A (H1) PCR Not detected (NOT DETECT) 10/02/22 01:45 Influenza A (H3) PCR Not detected (NOT DETECT) 10/02/22 01:45 Influenza Type A (PCR) Not detected (NOT DETECT) 10/02/22 01:45 Influenza Type B (PCR) Not detected (NOT DETECT) 10/02/22 01:45 M. pneumoniae (PCR) Not detected (NOT DETECT) 10/02/22 01:45 Parainfluenza 1 (PCR) Not detected (NOT DETECT) 10/02/22 01:45 Parainfluenza 2 (PCR) Not detected (NOT DETECT) 10/02/22 01:45 Parainfluenza 3 (PCR) Not detected (NOT DETECT) 10/02/22 01:45 Parainfluenza 4 (PCR) Not detected (NOT DETECT) 10/02/22 01:45 RSV Type A (PCR) Not detected (NOT DETECT) 10/02/22 01:45 RSV Type B (PCR) Not detected (NOT DETECT) 10/02/22 01:45 Entero/Rhino (PCR) Not detected (NOT DETECT) 10/02/22 01:45 SARS-CoV-2 (PCR) Not detected (NOT DETECT) 10/02/22 01:45 A&P Assessment and plan (1) Traumatic fracture of ribs of right side with pneumothorax: Patient presenting today after sustaining a fall at home and being found to have fractures of the seventh and eighth ribs on the right side. Also complicated by development of traumatic pneumothorax. Currently estimated to be 20%. Patient is needing 2 L/min supplemental O2 Dr. Kline was consulted from the ER, per discussion with ER physician and CT surgery, given that patient is currently requiring minimal oxygen support without signs of tension pneumothorax, holding off on chest tube for now. Repeat chest x-ray in a.m. to follow for serial improvement. As needed morphine, hydrocodone / APAP for pain management. (2) Urinary tract infection: Patient has a past medical history of BPH and urinary retention which developed after lumbar decompressive surgery in 2020. Patient is on Flomax and intermittent self cath at home until recently Today UA shows + leukocyte esterase, 80-100 WBC , 4+ bacteria check urine and blood cx He has received Levaquin 750 mg x 1 currently in the ER, will continue with ciprofloxacin 400mg iv q12h He is only andrew to tell me he is allergic to PCN with reaction being shortness of breath. He does not recall every taking augmentin/amoxicillin or other cephalosporins check bladder scan and CT KUB Attestations Medical Necessity Statement*: > 2 midnight admission anticipated for above care Coding Level of Care Code Acute Code for [facility] Diagnoses Traumatic fracture of ribs of right side with pneumothorax S22.41XA; S27.0XXA Urinary tract infection N39.0
[2022-10-03] VITALS (97 sets, daily range): BP systolic 105–176; BP diastolic 53–99; PULSE 70–91; RESP 14–30; TEMP 36.6–37.6; O2SAT 93–99
--- NOTE | 2022-10-03 00:30 | PC.NURSE ---
At patients request, assisted with urinal 3X in last 90mins. Each attempt resulted in 15-25ml output. Bladder scan performed after last void. Scan indicated 100mls remaining in bladder. Will place urinary catheter as instructed by physician.
[2022-10-03] MEDS: tamsulosin 0.4 mg Capsule PO ×2 (01:27→20:57)
[2022-10-03] MEDS: heparin 5,000 unit/mL INJ 1 mL 5000 UNIT SUBCUT ×3 (01:27→15:59)
--- NOTE | 2022-10-03 03:30 | PC.NURSE ---
175ml urine output s/p marina catheter placement.
[2022-10-03 03:34] LABS: Adenovirus Not Detected (NOT DETECT); Chlamydia Pneumoniae Not Detected (NOT DETECT); Coronavirus 229E,HKU1,NL63,OC4 Not Detected (NOT DETECT); Human Metapneumovirus Not Detected (NOT DETECT); Human Rhinovirus/Enterovirus Not Detected (NOT DETECT); Influenza A Not Detected (NOT DETECT); Influenza A H1 Not Detected (NOT DETECT); Influenza A H1-2009 Not Detected (NOT DETECT); Influenza A H3 Not Detected (NOT DETECT); Influenza B Not Detected (NOT DETECT); Mycoplasma Pneumoniae Not Detected (NOT DETECT); Parainfluenza Virus Type 1 Not Detected (NOT DETECT); Parainfluenza Virus Type 2 Not Detected (NOT DETECT); Parainfluenza Virus Type 3 Not Detected (NOT DETECT); Parainfluenza Virus Type 4 Not Detected (NOT DETECT); Respiratory Syncytial Virus A Not Detected (NOT DETECT); Respiratory Syncytial Virus B Not Detected (NOT DETECT); SARS-COV-2 Not Detected (NOT DETECT)
[2022-10-03 04:44] LABS: Basophils % 0.2 %; Eosinophils % 0.1 %; Hematocrit 43.7 % (42.0-52.0); Hemoglobin 14.7 g/dL (11.7-16.6); Lymphocytes # 1.8 10^3/uL (0.8-4.8); Lymphocytes % 12.8 %; Mean Corpuscular HGB Conc 33.6 g/dL (30.0-36.0); Mean Corpuscular Hemoglobin 31.1 pg (28.0-34.0); Mean Corpuscular Volume 92.6 fl (80-94); Mean Platelet Volume 9.6 fL (7.4-10.4); Monocytes # 0.9 10^3/uL (0.2-0.9); Monocytes % 6.3 %; Neutrophils # 11.02 10^3/uL (1.8-7.7); Neutrophils % 80.2 %; Nucleated Red Blood Cells % 0 %; Platelet Count 113 10^3/cmm (130-400); Red Blood Count 4.72 10^6/uL (4.1-5.3); Red Cell Distribution Width 13.8 % (12.1-15.1); White Blood Count 13.7 10^3/uL (4.0-10.0)
[2022-10-03 05:09] LABS: Alanine Aminotransferase 40 U/L (0-41); Albumin Level 3.9 g/dL (3.5-5.2); Alkaline Phosphatase 86 U/L (40-130); Anion Gap 14.1 (5-19); Aspartate Amino Transferase 48 U/L (0-40); Blood Urea Nitrogen 23 mg/dL (8-23); Calcium 8.7 mg/dL (8.5-10.5); Carbon Dioxide 23 mmol/L (22-29); Chloride 100 mmol/L (98-107); Creatinine Clr Calc Pharmacy 56.1237; Globulin 2.3 g/dL (1.3-4.6); Glucose 112 mg/dL (65-115); Osmolality Calculated 280 mOsm/kg (285-295); Potassium 4.1 mmol/L (3.5-5.1); Sodium 133 mmol/L (136-145); Total Bilirubin 1.2 mg/dL (0.15-1.2); Total Protein 6.2 g/dL (6.6-8.7)
--- NOTE | 2022-10-03 06:31 | XRR_ITS ---
PROCEDURE INFORMATION: Exam: XR Chest Exam date and time: 10/03/2022 5:42 AM Age: 87 years old Clinical indication: Condition or disease; Lung condition and disease; Pneumothorax; Additional info: Rib FX, pneumothorax TECHNIQUE: Imaging protocol: Radiologic exam of the chest. Views: 1 view. COMPARISON: CT chest [facility] [id number] 10/02/2022 8:01 PM FINDINGS: Lungs: Interstitial prominence and mild left basilar airspace disease . Pleural spaces: Small residual right pneumothorax which was better visualized on CT. Heart/Mediastinum: Cardiac silhouette upper limits of normal size. Vasculature: Ectasia of the thoracic aorta. Bones/joints: Acute right rib fractures. Osteopenia and degenerative change. XR/XR chest 1V portable [id number] IMPRESSION: 1. Small residual right pneumothorax which was better visualized on CT. 2. Acute right rib fractures.
--- NOTE | 2022-10-03 06:41 | P.CONIM_ITS ---
Providers/Reason For Consult Consulting Physician/Specialty*: Dr. Kline/cardiothoracic surgery Reason for Consult*: Traumatic right seventh rib fracture/pneumothorax Requesting Physician: Dr. Martínez/emergency medicine Attending Physician: Betsy Chen MD Primary Care Provider: Andrea Carreno MD History of Present Illness History of Present Illness Roc Arreaga is a 87 year old male who presented to the emergency department yesterday evening complaining of right-sided chest discomfort after falling in the shower around 2 PM and striking the right side of his chest against the edge of the bathtub. He described the discomfort as substantially increased with coughing or deep breathing. Denied any substantial shortness of breath. No hemoptysis. No other known trauma though he was not certain whether he struck his head. He did report that he has had a subjective fevers over several days and a temperature up to 104. There is initial evaluation he underwent CT scan of the chest Which revealed about a 20% pneumothorax. There was a right lateral seventh rib fracture and possible involvement of the eighth rib. Ascending thoracic aorta dilated at 3.3 cm. Cardiomegaly noted. No other substantial findings. No pleural effusion noted. He also underwent CT scan of the cervical spine and a head CT scan. Head CT scan was negative. CT of the neck was negative for fracture or dislocation with degenerative changes noted. I was contacted by phone by Dr. Martínez yesterday evening. Patient is been very stable and presented approximately 4 to 5 hours after the acute event. Related to the small pneumothorax as well as the interval of time between the acute injury and presentation, I made recommendations to consider close observation with continuous O2 by nasal cannula for nitrogen washout. He has been monitored in the ICU overnight. At time of my rounds, he and his are both sleeping. He has a respiratory rate of 20 with a blood pressure 127/79. O2 saturation is 96 to 97% on 2 L nasal cannula. It is noted with his presentation and laboratory data, that he appears to have a urinary tract infection and has received Levaquin in the emergency department. Chest x-ray this morning reveals no evidence for substantial pulmonary contusion or effusion. The previously described rib fracture is noted laterally. No substantial subcutaneous emphysema. No infiltrate. With magnification there may be a small lateral pneumothorax though it is somewhat difficult to see as there is overlying projection of oxygen cannula hose. Review of Systems Const: Reports: fever(s), body aches and fatigue Eyes: Denies: change in vision ENMT: Reports: hoarseness; Denies: throat pain Card: Denies: chest pain or palpitations GI: Denies: abdominal pain, nausea or vomiting Musc: Denies: neck pain or back pain Neuro: Denies: headache(s) or numbness in extremities Gómez/Lymph: Denies: easy bruising or easy bleeding Medications/Allergies Home Medications Medication Instructions Recorded Confirmed Last Taken Type aspirin 325 mg tablet 325 mg PO DAILY 02/25/21 09/13/22 03/30/21 History hydrocodone 5 mg-acetaminophen 325 1 - 2 tab PO .Q4-6H #40 tabs 04/02/21 09/13/22 Unknown Rx mg tablet vitamin B complex (B 1 tab PO DAILY 04/22/21 09/13/22 Unknown History Complex-Vitamin B12 tablet) ciprofloxacin HCl 500 mg tablet 500 mg PO BID #14 tabs 09/14/21 09/13/22 Unknown Rx tamsulosin 0.4 mg capsule See Rx Instructions .Route 09/13/22 09/13/22 Unknown Rx .COMPLEX #90 caps Allergies Allergy/AdvReac Type Severity Reaction Status Date / Time Penicillins Allergy Mild rash-shortness Verified 10/02/22 19:03 of breath Current Medications Generic Name Dose Route Start Last Admin Trade Name Freq PRN Reason Stop Dose Admin Heparin Sodium (Porcine) 5,000 unit 10/02/22 23:45 10/03/22 01:27 Heparin 5,000 Unit/Ml Inj 1 Ml SUBCUT 5,000 unit Q8H JESUS MANUEL Administration Tamsulosin HCl 0.4 mg 10/02/22 23:45 10/03/22 01:27 Tamsulosin 0.4 Mg Capsule PO 0.4 mg BEDTIME JESUS MANUEL Administration PFSH Acute PFSH: Medical History 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 Bladder [facility] by [facility] initiated Family History Father , AT 74 Heart disease Mother , AT 96 Stroke Other Hypertension Social History Smoking and tobacco status: never smoked Alcohol intake: never Substance/Drug Use: never Marital status: Current occupational status: retired Vitals/I&O/Wt Last Vital Signs Temp 99.2 F 10/03/22 04:00 Pulse 86 10/03/22 05:44 Resp 21 H 10/03/22 05:30 BP 144/63 10/03/22 05:30 Pulse Ox 96 10/03/22 05:30 O2 Del Method Nasal Cannula 10/03/22 04:00 O2 Flow Rate 2 10/03/22 04:00 10/02/22 10/02/22 10/03/22 14:59 22:59 06:59 Output Total 325 / 345 Balance - / 20 -325 / -345 Weight last 48 hrs Weight 145 lb Physical Exam Const: COMMON NORMALS: no acute distress and average body habitus HENMT: COMMON NORMALS: normocephalic, atraumatic, external ears normal and Normal external nose present HEAD & SCALP: normocephalic and atraumatic NOSE: Normal external nose present EXTERNAL EAR: Yes external ears normal Neck/C-Spine: COMMON NORMALS: no lymphadenopathy and No carotid bruits Chest: OTHER: Right-sided chest wall tenderness. Resp: COMMON NORMALS: normal respiratory effort and clear to auscultation bilaterally AUSCULTATION: clear to auscultation bilaterally Cardio: COMMON NORMALS: regular rate, regular rhythm and S1 normal heart sound present RATE: regular rate RHYTHM: regular rhythm HEART SOUNDS: S1 normal heart sound present GI: COMMON NORMALS: Normal to inspection, nondistended, normoactive bowel sounds present Extremity: COMMON NORMALS: no clubbing, cyanosis or edema Urinary Catheter Management: Coude: Cath Placed During This Visit: yes Reason for Continuing Indwelling Catheter: Acute Urinary Retention or Obstruction Urinary Catheter Date of Insertion: 10/03/22 Urinary Catheter Time of Insertion: 02:47 Data 10/03/22 04:15 10/03/22 04:15 Micro: Microbiology 10/02/22 21:17 Blood Culture - Preliminary Blood SPECIMEN COLLECTED 10/02/22 21:14 Blood Culture - Preliminary Blood SPECIMEN COLLECTED A&P Assessment and plan (1) Traumatic fracture of ribs of right side with pneumothorax: I recommend Mr. Arreaga be up in a chair after breakfast with use of his incentive spirometry. I would recommend a follow-up chest x-ray at noon. Continue continuous oxygen by nasal cannula for nitrogen washout. Greatly appreciate expertise and assistance of our hospitalist colleagues. Consult Attestations Medical Necessity Statement: Traumatic right rib fracture with pneumothorax Coding Level of Care Code Acute Code for [facility] Fwd Diagnoses Traumatic fracture of ribs of right side with pneumothorax S22.41XA; S27.0XXA
--- NOTE | 2022-10-03 07:00 | CTR_ITS ---
PROCEDURE INFORMATION: Exam: CT Abdomen And Pelvis Without Contrast Exam date and time: 10/03/2022 5:05 PM Age: 87 years old Clinical indication: Abdominal pain; Generalized; Additional info: Evalute for obstrcution TECHNIQUE: Imaging protocol: Computed tomography of the abdomen and pelvis without contrast. Radiation optimization: All CT scans at this facility use at least one of these dose optimization techniques: automated exposure control; mA and/or kV adjustment per patient size (includes targeted exams where dose is matched to clinical indication); or iterative reconstruction. REPORTING DATA: Count of CT and Cardiac NM exams in prior 12 months: This patient has received 3 known CTs and 0 known cardiac nuclear medicine studies in the 12 months prior to the current study. COMPARISON: CT chest wo con [id number] 10/02/2022 8:01 PM RADIATION DOSE METRICS: Total DLP (mGy-cm): 406 FINDINGS: Lungs: Left lower lobe atelectasis versus infiltrate. Pleural spaces: Right-sided pneumothorax again seen similar to prior exam. Liver: Normal. No mass. Gallbladder and bile ducts: Normal. No calcified stones. No ductal dilation. Pancreas: Normal. No ductal dilation. Spleen: Normal. No splenomegaly. Adrenal glands: Normal. No mass. Kidneys and ureters: Bilateral renal cysts, negative for follow-up advised. Stomach and bowel: Moderate constipation. Diverticulosis without diverticulitis. Appendix: No evidence of appendicitis. Intraperitoneal space: Unremarkable. No free air. No significant fluid collection. Vasculature: Unremarkable. No abdominal aortic aneurysm. Lymph nodes: Unremarkable. No enlarged lymph nodes. Urinary bladder: Ford catheter in the urinary bladder with moderate diffuse wall thickening, perhaps reflecting an underlying cystitis. Air seen in the urinary bladder, may be iatrogenic. Reproductive: Unremarkable as visualized. Bones/joints: Unremarkable. No acute fracture. Soft tissues: Unremarkable. CT/CT kidney stone [id number] IMPRESSION: 1. Negative for bowel dilation to indicate obstruction as in clinical indication. 2. Right-sided pneumothorax again seen similar to prior exam. 3. Left lower lobe atelectasis versus infiltrate. 4. Moderate constipation. 5. Diverticulosis without diverticulitis. 6. Ford catheter in the urinary bladder with moderate diffuse wall thickening, perhaps reflecting an underlying cystitis. 7. Air seen in the urinary bladder, may be iatrogenic. 8. Bilateral renal cysts, negative for follow-up advised. COMMENTS: Consistent with the [employer]'s Incidental Findings Committee white paper (J Am Megan Radiol 2018): Any incidental renal lesion less than 1 cm or classified as too small to characterize, or any incidental cystic renal lesion characterized as simple-appearing, is likely benign. No follow-up imaging is recommended for these lesions per consensus recommendations based on imaging criteria.
[2022-10-03] MEDS: aspirin 325 mg Tablet PO (08:18)
[2022-10-03] MEDS: pantoprazole DR 40 mg Tablet PO (08:18)
[2022-10-03] MEDS: ciprofloxacin 400 MG/200 ML PREMIX 200 MG IV ×2 (08:18→19:22)
--- NOTE | 2022-10-03 12:00 | XRR_ITS ---
PROCEDURE INFORMATION: Exam: XR Chest Exam date and time: 10/03/2022 10:59 AM Age: 87 years old Clinical indication: Condition or disease; Lung condition and disease; Pneumothorax; Additional info: Rib FX, pneumo: Oob this am, ambulating TECHNIQUE: Imaging protocol: Radiologic exam of the chest. Views: 1 view. COMPARISON: CR XR chest 1V portable [id number] 10/03/2022 5:42 AM FINDINGS: Lungs: Interstitial prominence and trace basilar airspace disease. Pleural spaces: Trace residual right pneumothorax. Heart/Mediastinum: Cardiac silhouette upper limits of normal size. Vasculature: Ectasia of the thoracic aorta. Bones/joints: Acute right rib fractures. Osteopenia and degenerative change. When correlating with the previous study, no significant interval changes are present. XR/XR chest 1V portable [id number] IMPRESSION: Stable appearance of the chest with trace residual right pneumothorax.
--- NOTE | 2022-10-03 15:45 | PM.PN ---
Subjective Subjective: Patient was seen this morning, patient's is at bedside, I also spoke to patient's 's family friend over the phone, had extensive family discussion -Patient tells me that she is also fallen in the last week and she had rib fractures -He tells me that he got up out of bed this morning, he felt weak and fell -She thinks this may be a UTI -She tells me that recently has been feeling weak, he always has balance problems -He tells me that he had back surgery back in March, -He continues to have balance, no back pain currently -Denies any fevers, no chills but does have a history of UTIs -Patient is very hard of hearing, frequently looks at for answers, he gets most of his questions appropriately, but a lot of his responses are delayed and looks to his for a lot of the answers, 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 Vitals/I&O/Wt Last Vital Signs Temp 99.2 F 10/03/22 04:00 Pulse 80 10/03/22 13:18 Resp 22 H 10/03/22 13:18 BP 122/54 10/03/22 12:00 Pulse Ox 97 10/03/22 13:18 O2 Del Method Nasal Cannula 10/03/22 13:18 O2 Flow Rate 2.5 10/03/22 13:18 10/03/22 10/03/22 10/03/22 06:59 14:59 22:59 Intake Total 150 / 150 560 / 560 Output Total 325 / 345 Balance -175 / -195 560 / 560 Weight last 48 hrs Weight 65.771 kg Physical Exam Const: COMMON NORMALS: no acute distress ORIENTATION/CONSCIOUSNESS: Yes awake, Yes oriented to person and Yes oriented to place; not oriented to time Resp: COMMON NORMALS: normal respiratory effort, No retractions, No use of accessory muscles and clear to auscultation bilaterally AUSCULTATION: clear to auscultation bilaterally Cardio: COMMON NORMALS: regular rate, regular rhythm, S1 normal heart sound present and S2 normal heart sound present RATE: regular rate RHYTHM: regular rhythm HEART SOUNDS: S1 normal heart sound present and S2 normal heart sound present GI: COMMON NORMALS: Normal to inspection, nondistended, normoactive bowel sounds present and non-tender Extremity: COMMON NORMALS: no pedal edema Neuro: SENSORIUM/ORIENTATION: Yes oriented to person, Yes oriented to place and No oriented to time Psych: COMMON NORMALS: mental status grossly normal Urinary Catheter Management: Coude: Cath Placed During This Visit: yes Reason for Continuing Indwelling Catheter: Acute Urinary Retention or Obstruction Urinary Catheter Date of Insertion: 10/03/22 Urinary Catheter Time of Insertion: 02:47 Data 10/03/22 04:15 10/03/22 04:15 Micro: Microbiology 10/02/22 21:17 Blood Culture - Preliminary Blood SPECIMEN COLLECTED 10/02/22 21:14 Blood Culture - Preliminary Blood SPECIMEN COLLECTED A&P Assessment and plan (1) Traumatic fracture of ribs of right side with pneumothorax: Patient presenting today after sustaining a fall at home and being found to have fractures of the seventh and eighth ribs on the right side. Also complicated by development of traumatic pneumothorax. Repeat chest x-rays this afternoon show resolving pneumothorax Patient is needing 2 L/min supplemental O2 Dr. Kline helping with management (2) Urinary tract infection: Patient has a past medical history of BPH and urinary retention which developed after lumbar decompressive surgery in 2020. Patient is on Flomax and intermittent self cath at home until recently Today UA shows + leukocyte esterase, 80-100 WBC , 4+ bacteria check urine and blood cx He has received Levaquin 750 mg x 1 currently in the ER, will continue with ciprofloxacin 400mg iv q12h He is only andrew to tell me he is allergic to PCN with reaction being shortness of breath. He does not recall every taking augmentin/amoxicillin or other cephalosporins continue Cipro 400 twice daily check bladder scan and CT KUB (3) Fall: - PT OT (4) Rib fractures: - Pain control (5) Physical deconditioning: - PT OT -Would strongly advise for correction rehab (6) Protein calorie malnutrition: -Has moderate protein calorie malnutrition, with temporal muscle wasting, with evidence of muscle wasting in bilateral thigh muscles, bilateral shoulders, arms - Start Ensure drinks with meals, consult dietary Plan Up into a chair, repeat chest x-ray this afternoon, pain control, repeat chest x-ray tomorrow morning, will start PT OT tomorrow morning CT scan renal Spoke to patient, spoke to patient's , spoke to patient's family friend over the phone spoke to nursing staff, utilization review nurse notes Attestations Medical Necessity Statement*: Patient requires hospitalization for right-sided pneumothorax, UTI, rib fractures, fall, does have and High Time for a total of 60 minutes, includes reviewing past or interval history, examining/interviewing patient, placing orders, counseling patient/family/other support, updating patient/family/other support, discussing plan of care with staff, communicating with other healthcare providers, documenting encounter and coordinating care Diagnoses Traumatic fracture of ribs of right side with pneumothorax S22.41XA; S27.0XXA Urinary tract infection N39.0 Fall W19.XXXA Rib fractures S22.49XA Physical deconditioning R53.81 Protein calorie malnutrition E46
[2022-10-04] VITALS (73 sets, daily range): BP systolic 95–153; BP diastolic 50–88; PULSE 72–118; RESP 11–29; TEMP 36.7–37.4; O2SAT 85–99
[2022-10-04] MEDS: heparin 5,000 unit/mL INJ 1 mL 5000 UNIT SUBCUT ×4 (00:03→23:03)
[2022-10-04 02:52] LABS: Basophils % 0.2 %; Eosinophils # 0.1 10^3/uL (0.0-0.8); Eosinophils % 0.4 %; Hematocrit 40.8 % (42.0-52.0); Hemoglobin 13.8 g/dL (11.7-16.6); Lymphocytes # 1.3 10^3/uL (0.8-4.8); Lymphocytes % 10.3 %; Mean Corpuscular HGB Conc 33.8 g/dL (30.0-36.0); Mean Corpuscular Hemoglobin 31.7 pg (28.0-34.0); Mean Corpuscular Volume 93.6 fl (80-94); Mean Platelet Volume 10.1 fL (7.4-10.4); Monocytes # 0.7 10^3/uL (0.2-0.9); Monocytes % 5.4 %; Neutrophils # 10.55 10^3/uL (1.8-7.7); Neutrophils % 83.2 %; Nucleated Red Blood Cells % 0 %; Platelet Count 121 10^3/cmm (130-400); Red Blood Count 4.36 10^6/uL (4.1-5.3); Red Cell Distribution Width 13.8 % (12.1-15.1); White Blood Count 12.7 10^3/uL (4.0-10.0)
[2022-10-04 03:20] LABS: Alanine Aminotransferase 34 U/L (0-41); Albumin Level 3.2 g/dL (3.5-5.2); Alkaline Phosphatase 88 U/L (40-130); Anion Gap 13.6 (5-19); Aspartate Amino Transferase 31 U/L (0-40); Blood Urea Nitrogen 26 mg/dL (8-23); Calcium 8.4 mg/dL (8.5-10.5); Carbon Dioxide 20 mmol/L (22-29); Chloride 99 mmol/L (98-107); Globulin 2.4 g/dL (1.3-4.6); Glucose 122 mg/dL (65-115); NT Pro B Type Natriuretic Pept 397 pg/mL (0-450); Osmolality Calculated 274 mOsm/kg (285-295); Potassium 3.6 mmol/L (3.5-5.1); Sodium 129 mmol/L (136-145); Total Bilirubin 0.8 mg/dL (0.15-1.2); Total Protein 5.6 g/dL (6.6-8.7)
--- NOTE | 2022-10-04 06:04 | PM.PN ---
Subjective Subjective: CXR stable this morning. No infiltrates or effusion. Vitals/I&O/Wt Last Vital Signs Temp 99.0 F 10/04/22 04:00 Pulse 90 10/04/22 04:30 Resp 17 10/04/22 04:30 BP 123/69 10/04/22 04:30 Pulse Ox 98 10/04/22 04:30 O2 Del Method Nasal Cannula 10/04/22 04:00 O2 Flow Rate 2 10/04/22 04:00 10/03/22 10/03/22 10/04/22 14:59 22:59 06:59 Intake Total 560 / 560 440 / 1000 Output Total 1050 / 1050 Balance 560 / 560 -610 / -50 Weight last 48 hrs Weight 145 lb Physical Exam Urinary Catheter Management: Coude: Cath Placed During This Visit: yes Reason for Continuing Indwelling Catheter: Accurate Measurement of Urinary Output in Critically Ill Patients Urinary Catheter Date of Insertion: 10/03/22 Urinary Catheter Time of Insertion: 02:47 Data 10/04/22 02:15 10/04/22 02:15 Micro: Microbiology 10/02/22 21:17 Blood Culture - Preliminary Blood NEGATIVE TO DATE 10/02/22 21:14 Blood Culture - Preliminary Blood NEGATIVE TO DATE A&P Assessment and plan (1) Traumatic fracture of ribs of right side with pneumothorax: No new recommendations. Continue pulmonary toilet. Pulmonary status and CXR stable. I will be available as needed Greatly appreciate assistance of our Hospitalist Colleagues. Attestations Medical Necessity Statement*: Traumatic rib fx with pneumothorax, resolving Coding Level of Care Code Acute Code for [facility] Fwd Diagnoses Traumatic fracture of ribs of right side with pneumothorax S22.41XA; S27.0XXA
--- NOTE | 2022-10-04 07:00 | XRR_ITS ---
PROCEDURE INFORMATION: Exam: XR Chest Exam date and time: 10/04/2022 5:46 AM Age: 87 years old Clinical indication: Shortness of breath; Additional info: SOB TECHNIQUE: Imaging protocol: Radiologic exam of the chest. Views: 1 view. COMPARISON: CR XR chest 1V portable [id number] 10/03/2022 10:59 AM FINDINGS: Lungs: Bibasilar atelectasis, left greater than right. Pneumonia should be excluded clinically. Pleural spaces: Unremarkable. No pleural effusion. No pneumothorax. Heart/Mediastinum: Stable cardiomediastinal silhouette. Bones/joints: Degenerative changes of the spine seen. XR/XR chest 1V portable [id number] IMPRESSION: Bibasilar atelectasis, left greater than right. Pneumonia should be excluded clinically.
[2022-10-04] MEDS: pantoprazole DR 40 mg Tablet PO (07:52)
[2022-10-04] MEDS: aspirin 325 mg Tablet PO (07:52)
[2022-10-04] MEDS: ciprofloxacin 400 MG/200 ML PREMIX 200 MG IV ×2 (07:52→20:09)
[2022-10-04] MEDS: sodium chloride 0.9% 1,000 ML 75 ML IV ×2 (09:13→23:03)
--- NOTE | 2022-10-04 18:24 | P.PN_ITS ---
Subjective Subjective: Patient was seen this morning, he was seen multiple times including with at bedside and family members at bedside, this morning he had no complaints, he actually ambulated with physical therapy yesterday evening, denies any chest pain, no palpitations, does have a poor appetite, he is reexamined with his present, she wanted updates, the repeat chest x-ray showed resolving pneumothorax, he continues to have complaints of chest wall pain with his rib fractures, but he is trying to cough as best as he can, patient was reexamined with his family members at bedside, I went over in detail about his pneumothorax, which is resolving, his rib fractures, his UTI, deconditioning, he does have hyponatremia probably due to poor appetite, I am going to start him on fluids, will have physical therapy work with him, plan on discharging in the next 24 hours Vitals/I&O/Wt Last Vital Signs Temp 98.0 F 10/04/22 07:00 Pulse 86 10/04/22 16:00 Resp 19 H 10/04/22 16:00 BP 123/61 10/04/22 16:00 Pulse Ox 94 10/04/22 16:00 O2 Del Method Nasal Cannula 10/04/22 08:46 O2 Flow Rate 2 10/04/22 08:46 10/04/22 10/04/22 10/04/22 06:59 14:59 22:59 Intake Total 560 / 560 Output Total 550 / 1600 1200 / 1200 Balance -550 / -600 560 / 560 -1200 / -640 Weight last 48 hrs Weight 65.771 kg Physical Exam Const: COMMON NORMALS: no acute distress and patient oriented x3 Resp: COMMON NORMALS: normal respiratory effort, No retractions, No use of accessory muscles and clear to auscultation bilaterally AUSCULTATION: clear to auscultation bilaterally Cardio: COMMON NORMALS: regular rate, regular rhythm, S1 normal heart sound present and S2 normal heart sound present RATE: regular rate RHYTHM: regular rhythm HEART SOUNDS: S1 normal heart sound present and S2 normal heart sound present GI: COMMON NORMALS: Normal to inspection, nondistended, normoactive bowel sounds present and non-tender Extremity: COMMON NORMALS: no pedal edema Neuro: COMMON NORMALS: patient oriented x3 Psych: COMMON NORMALS: mental status grossly normal Urinary Catheter Management: Coude: Cath Placed During This Visit: yes Reason for Continuing Indwelling Catheter: Accurate Measurement of Urinary Output in Critically Ill Patients Urinary Catheter Date of Insertion: 10/03/22 Urinary Catheter Time of Insertion: 02:47 Data 10/04/22 02:15 10/04/22 02:15 Micro: Microbiology 10/02/22 19:18 Urine Culture - Preliminary Urine,Clean Catch Gram Negative Rods 10/02/22 21:17 Blood Culture - Preliminary Blood NEGATIVE TO DATE 10/02/22 21:14 Blood Culture - Preliminary Blood NEGATIVE TO DATE A&P Assessment and plan (1) Traumatic fracture of ribs of right side with pneumothorax: Patient presenting today after sustaining a fall at home and being found to have fractures of the seventh and eighth ribs on the right side. Also complicated by development of traumatic pneumothorax. Repeat chest x-rays this morning shows no significant radiographic evidence of pneumothorax Patient is needing 2 L/min supplemental O2 Dr. Kline helping with management (2) Urinary tract infection: Patient has a past medical history of BPH and urinary retention which developed after lumbar decompressive surgery in 2020. Patient is on Flomax and intermittent self cath at home until recently Today UA shows + leukocyte esterase, 80-100 WBC , 4+ bacteria check urine and blood cx He has received Levaquin 750 mg x 1 currently in the ER, will continue with ciprofloxacin 400mg iv q12h He is only andrew to tell me he is allergic to PCN with reaction being shortness of breath. He does not recall every taking augmentin/amoxicillin or other cephalosporins continue Cipro 400 twice daily (3) Fall: - PT OT (4) Rib fractures: - Pain control (5) Physical deconditioning: - PT OT -Would strongly advise for intermediate rehab (6) Protein calorie malnutrition: -Has moderate protein calorie malnutrition, with temporal muscle wasting, with evidence of muscle wasting in bilateral thigh muscles, bilateral shoulders, arms -Continue Ensure drinks with meals, consult dietary (7) Hyponatremia: IV fluids (8) Hypoxia: Plan Plan for today, continue physical therapy, up into a chair, continue antibiotics, IV fluids, Spoke to patient, spoke to patient's , spoke to patient's family friend spoke to Attestations Medical Necessity Statement*: Patient requires hospitalization for UTI, rib fractures, pneumothorax, d econditioning, hyponatremia, hypoxia and High Time for a total of 60 minutes, includes reviewing past or interval history, examining/interviewing patient, placing orders, counseling patient/family/other support, updating patient/family/other support, discussing plan of care with staff, communicating with other healthcare providers, documenting encounter and coordinating care Diagnoses Traumatic fracture of ribs of right side with pneumothorax S22.41XA; S27.0XXA Urinary tract infection N39.0 Fall W19.XXXA Rib fractures S22.49XA Physical deconditioning R53.81 Protein calorie malnutrition E46 Hyponatremia E87.1 Hypoxia R09.02
[2022-10-04] MEDS: tamsulosin 0.4 mg Capsule PO (20:09)
[2022-10-05] VITALS (9 sets, daily range): BP systolic 113–170; BP diastolic 62–89; PULSE 81–129; RESP 15–26; TEMP 36.9; O2SAT 95–97
--- NOTE | 2022-10-05 01:13 | PC.NURSE ---
Assumed care of patient, report received from RICARDO Moses. Resting in bed, at bedside.
[2022-10-05 03:09] LABS: Basophils % 0.4 %; Eosinophils # 0.3 10^3/uL (0.0-0.8); Eosinophils % 3.6 %; Hematocrit 38.3 % (42.0-52.0); Hemoglobin 12.6 g/dL (11.7-16.6); Lymphocytes # 1.1 10^3/uL (0.8-4.8); Lymphocytes % 15.2 %; Mean Corpuscular HGB Conc 32.9 g/dL (30.0-36.0); Mean Corpuscular Hemoglobin 30.4 pg (28.0-34.0); Mean Corpuscular Volume 92.5 fl (80-94); Mean Platelet Volume 10.2 fL (7.4-10.4); Monocytes # 0.6 10^3/uL (0.2-0.9); Monocytes % 8.3 %; Neutrophils # 4.97 10^3/uL (1.8-7.7); Neutrophils % 72.2 %; Nucleated Red Blood Cells % 0 %; Platelet Count 126 10^3/cmm (130-400); Red Blood Count 4.14 10^6/uL (4.1-5.3); Red Cell Distribution Width 13.6 % (12.1-15.1); White Blood Count 6.9 10^3/uL (4.0-10.0)
[2022-10-05 03:39] LABS: Alanine Aminotransferase 35 U/L (0-41); Albumin Level 3.1 g/dL (3.5-5.2); Alkaline Phosphatase 83 U/L (40-130); Anion Gap 12.9 (5-19); Aspartate Amino Transferase 37 U/L (0-40); Blood Urea Nitrogen 23 mg/dL (8-23); Calcium 7.8 mg/dL (8.5-10.5); Carbon Dioxide 21 mmol/L (22-29); Chloride 103 mmol/L (98-107); Creatinine Clr Calc Pharmacy 56.1237; Globulin 2.1 g/dL (1.3-4.6); Glucose 100 mg/dL (65-115); NT Pro B Type Natriuretic Pept 562 pg/mL (0-450); Osmolality Calculated 280 mOsm/kg (285-295); Potassium 3.9 mmol/L (3.5-5.1); Sodium 133 mmol/L (136-145); Total Bilirubin 0.4 mg/dL (0.15-1.2); Total Protein 5.2 g/dL (6.6-8.7)
--- NOTE | 2022-10-05 06:00 | XRR_ITS ---
PROCEDURE INFORMATION: Exam: XR Chest Exam date and time: 10/05/2022 4:52 AM Age: 87 years old Clinical indication: Fever and shortness of breath; Additional info: SOB TECHNIQUE: Imaging protocol: Radiologic exam of the chest. Views: 1 view. COMPARISON: CR (CHEST, ) 10/04/2022 5:46 AM FINDINGS: Lungs: Mild airspace disease within the left lung base. Pleural spaces: Unremarkable. No pleural effusion. No pneumothorax. Heart/Mediastinum: The cardiac silhouette appears enlarged, some of which is magnification related to the AP projection. Bones/joints: Unremarkable. XR/XR chest 1V portable [id number] IMPRESSION: Mild airspace disease within the left lung base. Subpulmonic effusion. Minimal change.
[2022-10-05] MEDS: aspirin 325 mg Tablet PO (09:05)
[2022-10-05] MEDS: pantoprazole DR 40 mg Tablet PO (09:05)
[2022-10-05] MEDS: heparin 5,000 unit/mL INJ 1 mL 5000 UNIT SUBCUT (09:05)
[2022-10-05] MEDS: ciprofloxacin 400 MG/200 ML PREMIX 200 MG IV (09:05)
--- NOTE | 2022-10-05 10:49 | PM.DCS ---
Discharge Providers Date of Admission: 10/02/22 21:48 Date of Discharge: October 05, 2022 Attending Provider at Admission: Jay Zapata MD Attending Provider at Discharge: Adrian Diego MD Primary Care Provider: Andrea Carreno MD Diagnoses at Discharge Discharge Diagnosis (1) Traumatic fracture of ribs of right side with pneumothorax: Status: Acute (2) Urinary tract infection: Status: Acute (3) Fall: Status: Acute (4) Rib fractures: Status: Acute (5) Physical deconditioning: Status: Acute (6) Protein calorie malnutrition: Status: Acute (7) Hyponatremia: Status: Acute (8) Hypoxia: Status: Acute Reason for Visit Reason for Visit: Fall, fever Hospital Course Hospital Course Roc Arreaga is a 87 year old male with a past medical history of BPH and urinary retention presenting to the emergency room today with chief complaints of sustaining a fall earlier this evening.? Patient states that he accidentally fell in the shower and hit the right side of his chest on the bathtub.? Thereafter he has been complaining of tenderness over the right chest wall made worse especially by taking a deep breath and coughing.? Minimal movement triggers the pain.? He is uncertain if he also struck his head. He has been feeling unwell over the past day or so with fever up to 104 Fahrenheit and some subjective chills. Patient was admitted to [facility] for traumatic fracture of ribs, with right-sided pneumothorax, cardiothoracic surgery was consulted, patient was conservatively managed, size of pneumothorax slowly resolved, patient's pain improved, on discharge patient repeat chest x-ray shows no significant radiographic evidence of pneumothorax. Patient was advised if he has any recurrent shortness of breath, or chest pain to go to the emergency room. For his UTI, discharged on ciprofloxacin for 5 remaining days Has protein calorie malnutrition, has physical deconditioning, discharged with home health care, advised to drink Ensure drinks and twice daily Hospital course was complicated with dehydration hyponatremia improved with fluid therapy Physical Exam Const: COMMON NORMALS: no acute distress and patient oriented x3 Resp: COMMON NORMALS: normal respiratory effort, No retractions, No use of accessory muscles and clear to auscultation bilaterally AUSCULTATION: clear to auscultation bilaterally Cardio: COMMON NORMALS: regular rate, regular rhythm, S1 normal heart sound present and S2 normal heart sound present RATE: regular rate RHYTHM: regular rhythm HEART SOUNDS: S1 normal heart sound present and S2 normal heart sound present GI: COMMON NORMALS: Normal to inspection, nondistended, normoactive bowel sounds present and non-tender Extremity: COMMON NORMALS: no clubbing, cyanosis or edema and no pedal edema Neuro: COMMON NORMALS: patient oriented x3 Psych: COMMON NORMALS: mental status grossly normal Urinary Catheter Management: Coude: Cath Placed During This Visit: yes, but has since been removed by the nurse Reason for Continuing Indwelling Catheter: Decision to DC Catheter Urinary Catheter Date of Insertion: 10/03/22 Urinary Catheter Time of Insertion: 02:47 Date Urinary Catheter Removed: 10/05/22 Time Urinary Catheter Discontinued: 06:17 Discharge Data Studies Completed and Pending Completed Studies During Hospitalization Category Date Time Status CT cervical spin wo con* [id number] Stat Cat Scan 10/02/22 19:[address] chest wo con [id number] Stat Cat Scan 10/02/22 19:[address] head wo con* [id number] Stat Cat Scan 10/02/22 19:[address] kidney stone [id number] Routine Cat Scan 10/03/22 07:00 Completed CXRP [XR chest 1V portable [id number]] Routine Exams 10/03/22 06:31 Completed CXRP [XR chest 1V portable [id number]] Routine Exams 10/03/22 12:00 Completed XR chest 1V portable [id number] QAM Exams 10/05/22 06:00 Completed XR chest 1V portable [id number] Routine Exams 10/04/22 07:00 Completed Pending at discharge Category Date Time Status Blood Culture Stat Lab 10/02/22 21:17 Results Complete Blood Count w/Auto AM LABS Lab 10/06/22 04:00 Ordered Comprehensive Metabolic Panel AM LABS Lab 10/06/22 04:00 Ordered NT Pro B Type Natriuretic Pept QAM Lab 10/06/22 06:00 Ordered Urine Culture Stat Lab 10/02/22 19:18 Results Radiology Impressions Cervical Spine CT 10/02/22 19:42 IMPRESSION: 1. Negative for fracture or dislocation. 2. Multilevel disc space narrowing and degenerative disc calcifications throughout the spine. Chest CT 10/02/22 19:42 IMPRESSION: 1. Moderate right pneumothorax with 2.3 cm separation between the lung and pleura, anteriorly. 2. Patchy bilateral dependent lower lobe atelectasis versus pulmonary contusions. 3. Right lateral 7th and possibly 8th rib fractures. 4. 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 5. Cardiomegaly. 6. Coronary artery atherosclerotic calcifications. 7. Scattered prominent subcentimeter short axis mediastinal lymph nodes, nonspecific. 8. Bilateral renal cysts, negative for follow-up advised. 9. Diverticulosis without diverticulitis COMMENTS: Consistent with the [employer]'s Incidental Findings Committee white paper (J Am Megan Radiol 2018): Any incidental renal lesion less than 1 cm or classified as too small to characterize, or any incidental cystic renal lesion characterized as simple-appearing, is likely benign. No follow-up imaging is recommended for these lesions per consensus recommendations based on imaging criteria. ADDENDUM: 10/02/222024 THIS REPORT CONTAINS FINDINGS THAT MAY BE CRITICAL TO PATIENT CARE. The findings were verbally communicated via telephone conference with JAIMEE VIERA at 8:22 PM CDT on 10/02/2022. The findings were acknowledged and understood. Head CT 10/02/22 19:42 IMPRESSION: No acute intracranial abnormality. Abdomen/Pelvis CT 10/03/22 07:00 IMPRESSION: 1. Negative for bowel dilation to indicate obstruction as in clinical indication. 2. Right-sided pneumothorax again seen similar to prior exam. 3. Left lower lobe atelectasis versus infiltrate. 4. Moderate constipation. 5. Diverticulosis without diverticulitis. 6. Ford catheter in the urinary bladder with moderate diffuse wall thickening, perhaps reflecting an underlying cystitis. 7. Air seen in the urinary bladder, may be iatrogenic. 8. Bilateral renal cysts, negative for follow-up advised. COMMENTS: Consistent with the [employer]'s Incidental Findings Committee white paper (J Am Megan Radiol 2018): Any incidental renal lesion less than 1 cm or classified as too small to characterize, or any incidental cystic renal lesion characterized as simple-appearing, is likely benign. No follow-up imaging is recommended for these lesions per consensus recommendations based on imaging criteria. Chest X-Ray 10/05/22 06:00 IMPRESSION: Mild airspace disease within the left lung base. Subpulmonic effusion. Minimal change. Laboratory Results WBC 6.9 10^3/uL (4.0-10.0) 10/05/22 02:08 RBC 4.14 10^6/uL (4.1-5.3) 10/05/22 02:08 Hgb 12.6 g/dL (11.7-16.6) 10/05/22 02:08 Hct 38.3 % (42.0-52.0) L 10/05/22 02:08 MCV 92.5 fl (80-94) 10/05/22 02:08 MCH 30.4 pg (28.0-34.0) 10/05/22 02:08 MCHC 32.9 g/dL (30.0-36.0) 10/05/22 02:08 RDW 13.6 % (12.1-15.1) 10/05/22 02:08 Plt Count 126 10^3/cmm (130-400) L 10/05/22 02:08 MPV 10.2 fL (7.4-10.4) 10/05/22 02:08 Neut % (Auto) 72.2 % 10/05/22 02:08 Lymph % (Auto) 15.2 % 10/05/22 02:08 Grainger % (Auto) 8.3 % 10/05/22 02:08 Eos % (Auto) 3.6 % 10/05/22 02:08 Baso % (Auto) 0.4 % 10/05/22 02:08 Neut # (Auto) 4.97 10^3/uL (1.8-7.7) 10/05/22 02:08 Lymph # (Auto) 1.1 10^3/uL (0.8-4.8) 10/05/22 02:08 Grainger # (Auto) 0.6 10^3/uL (0.2-0.9) 10/05/22 02:08 Eos # (Auto) 0.3 10^3/uL (0.0-0.8) 10/05/22 02:08 Baso # (Auto) 0.0 10^3/uL (0.0-0.1) 10/05/22 02:08 Nucleated RBC % (auto) 0 % 10/05/22 02:08 Nucleated RBCs # 0.0 /100WBC 10/05/22 02:08 Sodium 133 mmol/L (136-145) L 10/05/22 02:08 Potassium 3.9 mmol/L (3.5-5.1) 10/05/22 02:08 Chloride 103 mmol/L (98-107) 10/05/22 02:08 Carbon Dioxide 21 mmol/L (22-29) L 10/05/22 02:08 Anion Gap 12.9 (5-19) 10/05/22 02:08 BUN 23 mg/dL (8-23) 10/05/22 02:08 Creatinine 0.9 mg/dL (0.7-1.2) 10/05/22 02:08 GFR Calculation Not Reportable 10/05/22 02:08 Glucose 100 mg/dL (65-115) 10/05/22 02:08 Calculated Osmolality 280 mOsm/kg (285-295) L 10/05/22 02:08 Lactic Acid 0.9 mmol/L (0.5-2.2) 10/02/22 20:30 Calcium 7.8 mg/dL (8.5-10.5) L 10/05/22 02:08 Total Bilirubin 0.4 mg/dL (0.15-1.2) 10/05/22 02:08 AST 37 U/L (0-40) 10/05/22 02:08 ALT 35 U/L (0-41) 10/05/22 02:08 Alkaline Phosphatase 83 U/L (40-130) 10/05/22 02:08 Creatine Kinase 99 U/L (39-308) 10/02/22 20:30 C-Reactive Protein 44.4 mg/L (0.0-4.9) H 10/02/22 20:30 NT-Pro-B Natriuret Pep 562 pg/mL (0-450) H 10/05/22 02:08 Total Protein 5.2 g/dL (6.6-8.7) L 10/05/22 02:08 Albumin 3.1 g/dL (3.5-5.2) L 10/05/22 02:08 Globulin 2.1 g/dL (1.3-4.6) 10/05/22 02:08 Urine Color Yellow (Yellow) 10/02/22 19:18 Urine Appearance Cloudy (CLEAR) A 10/02/22 19:18 Urine pH 8 (5-7) H 10/02/22 19:18 Ur Specific Parks 1.010 (1.005-1.030) 10/02/22 19:18 Urine Protein Trace (Negative) 10/02/22 19:18 Urine Glucose (UA) Norm (Normal) 10/02/22 19:18 Urine Ketones Negative (Negative) 10/02/22 19:18 Urine Blood 2+ (Negative) H 10/02/22 19:18 Urine Nitrate Negative (Negative) 10/02/22 19:18 Urine Bilirubin Neg (Negative) 10/02/22 19:18 Urine Urobilinogen 8 mg/dL (Negative) H 10/02/22 19:18 Ur Leukocyte Esterase 1+ (Negative) H 10/02/22 19:18 Urine RBC 0-4 /hpf (0-2) H 10/02/22 19:18 Urine WBC 80-100 /hpf (0-5) H 10/02/22 19:18 Ur Squamous Epith Cells 0-4 /hpf (0-5) H 10/02/22 19:18 Amorphous Sediment Not Reportable 10/02/22 19:18 Urine Bacteria 4+ /hpf (NONE) H 10/02/22 19:18 Nasal Influ A H1 2009 PCR Not detected (NOT DETECT) 10/02/22 01:45 Adenovirus (PCR) Not detected (NOT DETECT) 10/02/22 01:45 C. pneumoniae DNA (PCR) Not detected (NOT DETECT) 10/02/22 01:45 Coronavirus 229E (PCR) Not detected (NOT DETECT) 10/02/22 01:45 Human Metapneumovir PCR Not detected (NOT DETECT) 10/02/22 01:45 Influenza A (H1) PCR Not detected (NOT DETECT) 10/02/22 01:45 Influenza A (H3) PCR Not detected (NOT DETECT) 10/02/22 01:45 Influenza Type A (PCR) Not detected (NOT DETECT) 10/02/22 01:45 Influenza Type B (PCR) Not detected (NOT DETECT) 10/02/22 01:45 M. pneumoniae (PCR) Not detected (NOT DETECT) 10/02/22 01:45 Parainfluenza 1 (PCR) Not detected (NOT DETECT) 10/02/22 01:45 Parainfluenza 2 (PCR) Not detected (NOT DETECT) 10/02/22 01:45 Parainfluenza 3 (PCR) Not detected (NOT DETECT) 10/02/22 01:45 Parainfluenza 4 (PCR) Not detected (NOT DETECT) 10/02/22 01:45 RSV Type A (PCR) Not detected (NOT DETECT) 10/02/22 01:45 RSV Type B (PCR) Not detected (NOT DETECT) 10/02/22 01:45 Entero/Rhino (PCR) Not detected (NOT DETECT) 10/02/22 01:45 SARS-CoV-2 (PCR) Not detected (NOT DETECT) 10/02/22 01:45 Vitals Last Vital Signs Temp 98.4 F 10/05/22 04:00 Pulse 84 10/05/22 05:59 Resp 17 10/05/22 04:00 BP 116/66 10/05/22 04:00 Pulse Ox 97 10/05/22 04:00 O2 Del Method Room Air 10/05/22 04:00 O2 Flow Rate 2 10/04/22 08:46 Discharge Plan Discharge Patient Disposition: Home Health Service Condition: Stable Prescriptions: New hydrocodone-acetaminophen 5-325 mg Tablet 1 tab PO Q6H PRN (Reason: pain) 5 Days Qty: 20 0RF Continued aspirin 325 mg tablet 325 mg PO DAILY tamsulosin 0.4 mg capsule See Rx Instructions .ROUTE .COMPLEX Qty: 90 3RF Dose Instruction: Take 1 capsule by mouth once daily at bedtime Rx Instructions: Take 1 capsule by mouth once daily at bedtime ciprofloxacin HCl 500 mg tablet 500 mg PO BID 5 Days Qty: 10 0RF Discharge Orders: Discharge Order (Routine); Ordered 10/05/22 Ordered By: Adrian Diego Other Ambulatory Orders: DME: Jose D (Order) Location: None Selected Ordered By: Adrian Diego Referrals: [facility] ([facility]) [Outside] Andrea Carreno MD [Primary Care Provider] - 4-7 days (appointment has been scheduled: 2022 at time of 12:00 pm) Discharge Diet: Cardiac Discharge Activity: Resume usual activity Patient Instructions: Hydrocodone/Acetaminophen (By mouth) (Vicodin, [place], Lortab), Traumatic Pneumothorax (DC), Urinary Tract Infection in Men (DC), High Protein / High Calorie Diet (DC), Rib Fracture (DC), Fall Prevention for Older Adults (DC), Sepsis (DC), Fall Prevention (DC), Opioid Safety Activity Restrictions/Additional Instructions: - Please use hydrocodone sparingly for pain -Do not drive or operate machinery or drink while taking medication -If you develop worsening shortness of breath, fevers please go to emergency room -Please ambulate with care -If you have any recurrent falls go to emergency room -Take antibiotics as prescribed Discharge Attestations Time Spent in Discharge Care*: greater than 30 min Quality Metrics Clinical Quality Measures [ No reported AMI, CVA or VTE this stay] Coding Level of Care Code 34371 Total time (in minutes) for Discharge: 45 Diagnoses Traumatic fracture of ribs of right side with pneumothorax S22.41XA; S27.0XXA Urinary tract infection N39.0 Fall W19.XXXA Rib fractures S22.49XA Physical deconditioning R53.81 Protein calorie malnutrition E46 Hyponatremia E87.1 Hypoxia R09.02
--- NOTE | 2022-10-05 11:30 | PC.SOCIAL ---
Imm update Imm updated with patient at bedside. Copy of page 2 provided. Patient verbalized understanding. Copy in chart initialed, dated and timed.
== END 2022-10-05 13:25 | disposition home health service (06) | DRG 200 ==
LOC: ER 21:07 → ICU 22:07
PROVIDERS: Student in an Organized Health Care Education/Training Program; Admitting Provider Student in an Organized Health Care Education/Training Program; Emergency Provider Emergency Medicine; PCP Family Medicine; Visit Provider Family Medicine
DX: S27.0XXA Traumatic pneumothorax, initial encounter (principal); E44.0 Moderate protein-calorie malnutrition; S22.41XA Multiple fractures of ribs, right side, initial encounter for closed fracture; N39.0 Urinary tract infection, site not specified; E87.1 Hypo-osmolality and hyponatremia; W18.2XXA Fall in (into) shower or empty bathtub, initial encounter; N40.1 Benign prostatic hyperplasia with lower urinary tract symptoms; R33.8 Other retention of urine; Z68.22 Body mass index [BMI] 22.0-22.9, adult; E86.0 Dehydration; Z88.0 Allergy status to penicillin; I77.810 Thoracic aortic ectasia
CPT/HCPCS: 36415; 51702; 51798; 70450; 71045; 71250; 72125; 74176; 80053; 81001; 82550; 83605; 83880; 85025; 86140; 87040; 87077; 87086; 87186; 87486; 87581; 87633; 96372; 97110; 97116; 97161; 97165; 97530; 97535; 99285; J0744; J1644; J1956; J7030

== ENCOUNTER 2024-06-07 21:52 | Inpatient (IN) | payer MEDICARE, OTHER, SELFPAY ==
[2024-06-07 21:59] VITALS: BP 174/85; PULSE 65; RESP 16; TEMP 36.4; O2SAT 98
--- NOTE | 2024-06-07 22:10 | XRR_ITS ---
PROCEDURE INFORMATION: Exam: XR Left Hip Exam date and time: 06/08/2024 12:38 AM Age: 89 years old Clinical indication: Injury or trauma; Blunt trauma (contusions or hematomas); EMS arrival for left hip pain post fall. ; Additional info: Fall left hip pain TECHNIQUE: Imaging protocol: Radiologic exam of the left hip. Views: 2 or 3 views hip with pelvis when performed. COMPARISON: CT kidney stone [id number] 10/03/2022 5:05 PM FINDINGS: Bones/joints: Decreased bone density limits evaluation for fractures. Suspected incomplete nondisplaced femoral neck fracture. In addition, there is increased lucency involving the intertrochanteric region of the femur. No definitive additional fractures identified. Soft tissues: Unremarkable. Intraperitoneal space: Further evaluation with CT of the pelvis recommended. XR/XR hip LT 2-3V wo/w pel* [id number] IMPRESSION: Suspected nondisplaced incomplete hip fracture. Further evaluation with CT of the pelvis recommended.
[2024-06-08] VITALS (14 sets, daily range): BP systolic 98–167; BP diastolic 57–87; PULSE 75–97; RESP 15–18; TEMP 36.4–37.8; O2SAT 93–98; BMI 21.1
[2024-06-08] MEDS: morphine 4 mg/mL SDV 1 mL 2 MG IVP (01:28)
[2024-06-08] MEDS: ondansetron 2 mg/ML SDV 2 mL 4 MG IVP (01:29)
--- NOTE | 2024-06-08 01:34 | CTR_ITS ---
PROCEDURE INFORMATION: Exam: CT Pelvis Without Contrast, Skeleton Exam date and time: 06/08/2024 1:44 AM Age: 89 years old Clinical indication: Injury or trauma; Blunt trauma (contusions or hematomas); Patient C/O left hip pain post fall last night. Suspected but inconclusive fracture of femoral neck/intertrochanteric region noted on xray. ; Additional info: Fall left hip pain, abnormal x-ray TECHNIQUE: Imaging protocol: Computed tomography of the pelvis without contrast. Exam focused on the skeleton. Radiation optimization: All CT scans at this facility use at least one of these dose optimization techniques: automated exposure control; mA and/or kV adjustment per patient size (includes targeted exams where dose is matched to clinical indication); or iterative reconstruction. COMPARISON: CT kidney stone [id number] 10/03/2022 5:05 PM RADIATION DOSE METRICS: Total DLP (mGy-cm): 246.01 FINDINGS: Intestine: Diverticulosis. Vasculature: Calcific plaque involves the abdominal aorta and iliac arteries. Reproductive: Prostate gland is enlarged. Urinary bladder: The urinary bladder is distended with urine. Bones/joints: There is a minimally displaced left intertrochanteric femur fracture. No additional fractures. The bone density is decreased. Degenerative changes involve the lower lumbar spine and bilateral hips. Soft tissues: Unremarkable. CT/CT bony pelvis [id number] IMPRESSION: 1. Comminuted left intertrochanteric femur fracture. 2. Decreased bone density.
--- NOTE | 2024-06-08 01:34 | W.ED.EXTPRO ---
HPI - Extremity Problem General: Chief complaint: Extremity Injury, Lower Stated complaint: Fall,Numbness,Pain Time Seen by Provider: 06/08/24 01:15 History of Present Illness: Patient presents to the ER for evaluation post fall with left hip pain. Patient fell down landed on his left hip now is unable to move his hip and leg without pain. Patient not hit his head denies loss consciousness and is not on any anticoagulation. Patient is hard of hearing Related Data Home Medications ?Medication ?Instructions ?Recorded ?Confirmed aspirin 325 mg tablet 325 mg PO DAILY 02/25/21 10/03/22 Previous Rx's ?Medication ?Instructions ?Recorded tamsulosin 0.4 mg capsule See Rx Instructions .Route 09/13/22 .COMPLEX #90 caps ciprofloxacin HCl 500 mg tablet 500 mg PO BID 5 days #10 tabs 10/05/22 Allergies Allergy/AdvReac Type Severity Reaction Status Date / Time Penicillins Allergy Mild rash-shortness Verified 06/07/24 22:05 of breath Review of Systems General: Reports: 10 or more systems reviewed and unremarkable except in HPI and below PFSH ED PFSH: Medical History 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 Bladder followed by [facility] initiated Family History Father , AT 74 Heart disease Mother , AT 96 Stroke Other Hypertension Social History Smoking and tobacco/nicotine status: never used tobacco/nicotine Alcohol intake: never Substance/Drug Use: never Marital status: Current occupational status: retired Physical Exam Const: COMMON NORMALS: no acute distress, average body habitus, patient oriented x3, no limitations, healthy appearing, alert and well nourished HENMT: COMMON NORMALS: normocephalic and atraumatic HEAD & SCALP: normocephalic and atraumatic Neck/C-Spine: COMMON NORMALS: no JVD Cardio: COMMON NORMALS: no JVD, regular rate, regular rhythm, S1 normal heart sound present, S2 normal heart sound present, No gallops present (Cardio) and No clicks present (Cardio) RATE: regular rate RHYTHM: regular rhythm HEART SOUNDS: S1 normal heart sound present and S2 normal heart sound present GI: COMMON NORMALS: Normal to inspection, nondistended, normoactive bowel sounds present, Soft to palpation, non-tender, No hepatosplenomegaly present and no masses PALPATION: Yes Soft to palpation and Yes No hepatosplenomegaly present Extremity: OTHER: Limited range of motion secondary to pain, pain with palpation of left hip region. No obvious deformity or crepitus Neuro: COMMON NORMALS: patient oriented x3 SENSORIUM/ORIENTATION: Yes alert Course Vital Signs: Vital signs: Vital Signs Temperature 97.5 F L 06/07/24 21:59 Pulse Rate 75 06/08/24 01:33 Respiratory Rate 18 06/08/24 01:28 Blood Pressure 154/87 06/08/24 01:33 Pulse Oximetry 96 06/08/24 01:33 MDM - Extremity (Nontraumatic) Medical Decision Making Dr. Sebas Chan notified, admit to the hospitalist and consult him. Patient is on no blood thinners other than 3 and 25 mg aspirin, Dr. Kumar notified who agreed to place patient inpatient for further treatment. Medical Records I reviewed the patient's medical records. Lab Data I reviewed the patient's lab results. Radiology Impressions Hip/Pelvis X-Ray 06/07/24 22:10 IMPRESSION: Suspected nondisplaced incomplete hip fracture. Further evaluation with CT of the pelvis recommended. Pelvis CT 06/08/24 01:34 IMPRESSION: 1. Comminuted left intertrochanteric femur fracture. 2. Decreased bone density. All radiology interpretation(s) finalized by discharge Discharge Plan Discharge Patient Disposition: Admitted As Inpatient Clinical Impression: Closed hip fracture, Fall Condition: Stable Prescriptions: No Action aspirin 325 mg tablet 325 mg PO DAILY tamsulosin 0.4 mg capsule See Rx Instructions .ROUTE .COMPLEX Qty: 90 3RF Dose Instruction: Take 1 capsule by mouth once daily at bedtime Rx Instructions: Take 1 capsule by mouth once daily at bedtime ciprofloxacin HCl 500 mg tablet 500 mg PO BID 5 Days Qty: 10 0RF Referrals: Andrea Carreno MD [Primary Care Provider] - Print Language: Danish Coding Level of Care Code ED 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
--- NOTE | 2024-06-08 02:00 | XRR_ITS ---
PROCEDURE INFORMATION: Exam: XR Chest Exam date and time: 06/08/2024 2:28 AM Age: 89 years old Clinical indication: Other: Hypertension/preop for hip fracture; Hypertensive on monitor. Preop for hip fracture. TECHNIQUE: Imaging protocol: Radiologic exam of the chest. Views: 1 view. COMPARISON: CR XR chest 1V portable [id number] 10/05/2022 4:52 AM FINDINGS: Lungs: Discoid atelectasis left lung base. Otherwise, the lungs are clear. Pleural spaces: Unremarkable. No pleural effusion. No pneumothorax. Heart/Mediastinum: Stable cardiomegaly. Bones/joints: Unremarkable. XR/XR chest 1V portable [id number] IMPRESSION: Discoid atelectasis left lung base.
[2024-06-08 02:16] LABS: Basophils % 0.3 %; Eosinophils # 0.3 10^3/uL (0.0-0.8); Eosinophils % 2.3 %; Hematocrit 44.8 % (37-53); Lymphocytes # 2.7 10^3/uL (0.8-4.8); Lymphocytes % 24.1 %; Mean Corpuscular HGB Conc 32.1 g/dL (30-55); Mean Corpuscular Volume 96.6 fl (82-101); Mean Platelet Volume 10.1 fL (7.4-10.4); Monocytes # 0.6 10^3/uL (0.2-0.9); Monocytes % 5.3 %; Neutrophils # 7.48 10^3/uL (1.8-7.7); Neutrophils % 67.6 %; Nucleated Red Blood Cells % 0 %; Platelet Count 123 10^3/cmm (157-399); Red Blood Count 4.64 10^6/uL (3.85-5.65); Red Cell Distribution Width 14.3 % (12.1-15.1); White Blood Count 11.05 10^3/uL (3.29-11.43)
[2024-06-08 02:35] LABS: Alanine Aminotransferase 16 U/L (0-41); Albumin Level 4.1 g/dL (3.5-5.2); Alkaline Phosphatase 84 U/L (40-130); Aspartate Amino Transferase 21 U/L (0-40); Blood Urea Nitrogen 30 mg/dL (8-23); Calcium 8.8 mg/dL (8.5-10.5); Carbon Dioxide 22 mmol/L (22-29); Chloride 106 mmol/L (98-107); Globulin 2.5 g/dL (1.3-4.6); Glucose 112 mg/dL (65-115); Osmolality Calculated 297 mOsm/kg (285-295); Sodium 140 mmol/L (136-145); Total Bilirubin 0.4 mg/dL (0.15-1.2); Total Protein 6.6 g/dL (6.6-8.7)
--- NOTE | 2024-06-08 02:35 | P.HP_ITS ---
Providers/Chief Complaint 2 Primary Care Provider: Andrea Carreno MD Chief Complaint: Fall,Numbness,Pain History of Present Illness Roc Arreaga is a 89 year old male without significant past medical history presented after sustaining a fall at home. Patient is stating that he does have resting tremor/essential tremors, sometimes get bad, he takes Flomax for BPH otherwise no past medical history. He is endorsing history of back surgery in the past, he does experience recurrent falls. He is high risk for falls. Patient is stating that after his supper around 6 PM he went upstairs to go in his room, he turned on the light, tried to turn around his left foot got stuck and he fell on the floor. He landed on his left hip. He did not lose consciousness, he is not endorsing any seizure related activity, syncope or chest pain. No recent fever. He is compliant with his high dose of aspirin and Flomax. Workup in the ER reveal hip fracture, he has been kept n.p.o., orthopedic on-call surgeon consulted by the ER physician. Review of Systems 2 Const: Denies: fever(s) Eyes: Denies: change in vision ENMT: Denies: throat pain Card: Denies: chest pain Resp: Denies: dyspnea GI: Denies: abdominal pain : Denies: flank pain Musc: Reports: back pain Skin/Breast: Reports: rash Neuro: Denies: headache(s) Psych: Reports: anxiety Endo: Denies: polyuria Medications/Allergies Home Medications ?Medication ?Instructions ?Recorded ?Confirmed ?Last Taken ?Type aspirin 325 mg tablet 325 mg PO DAILY 02/25/2112/2303/30/21 History tamsulosin 0.4 mg capsule See Rx Instructions .Route 0 09/13/22 06/08/24 Unknown Rx .COMPLEX #90 caps Allergies Allergy/AdvReac Type Severity Reaction Status Date / Time Penicillins Allergy Mild rash-shortness Verified 06/07/24 22:05 of breath PFSH Acute 2 PFSH: Medical History (Updated 06/08/24 @ 02:38 by Petros Kumar MD) Protein calorie malnutrition Bacteriuria Pyuria 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 Bladder [facility] TAMSULOSIN initiated Surgical History (Updated 06/08/24 @ 02:38 by Petros Kumar MD) H/O neck surgery Hx of tonsillectomy Family History Father , AT 74 Heart disease Mother , AT 96 Stroke Other Hypertension Social History Smoking and tobacco/nicotine status: never used tobacco/nicotine Alcohol intake: never Substance/Drug Use: never Marital status: Current occupational status: retired Vitals/I&O/Wt Last Vital Signs Temp 97.5 F L 06/07/24 21:59 Pulse 75 06/08/24 01:33 Resp 18 06/08/24 01:28 BP 154/87 06/08/24 01:33 Pulse Ox 96 06/08/24 01:33 Weight last 48 hrs Weight 63.503 kg Physical Exam 2 Narrative: Clinically looks dehydrated Awake and alert S1, S2 Currently on room air Pleasant and cooperative Low extremity no neurovascular compromise Pleasant and cooperative No sign of stroke Abdomen soft Family at the bedside GCS 15 AOx4 Data 06/08/24 01:03 06/08/24 01:03 A&P Assessment and plan (1) Closed hip fracture: Qualifiers: Encounter type: initial encounter Laterality: left Qualified Code(s): S72.002A - Fracture of unspecified part of neck of left femur, initial encounter for closed fracture (2) Traumatic fracture of ribs of right side with pneumothorax: (3) Fall: Qualifiers: Encounter type: initial encounter Qualified Code(s): W19.XXXA - Unspecified fall, initial encounter (4) Lumbar stenosis with neurogenic claudication: (5) Status post lumbar laminectomy: Plan Mechanical fall Ground-level fall No syncope or chest pain or seizure related activity, no sign of cauda equina Patient fairly active for his age Previous history of neurogenic claudication High risk for falls Not endorsing significant past medical history No recent chest pain, preoperative class I risk, no preoperative cardiac stress test indicated at this point, N.p.o. Orthopedic consulted DVT prophylaxis SCDs for now History of BPH, patient retaining urine I have requested Ford catheter placement, he may benefit from coud? catheter I will continue IV fluid for hydration Opioids along bowel regimen Will request physical therapy after the surgery Patient has essential tremors, high risk for falls PDMP PDMP Reviewed: Not Reviewed Attestations 2 Medical Necessity Statement*: More than 2 midnights anticipated for management of hip fracture Diagnoses Closed hip fracture S72.002A Encounter type: initial encounter Laterality: left Traumatic fracture of ribs of right side with pneumothorax S22.41XA; S27.0XXA Fall W19.XXXA Encounter type: initial encounter Lumbar stenosis with neurogenic claudication M48.062 Status post lumbar laminectomy Z98.890
[2024-06-08 02:40] LABS: INR 1.04 (0.8-1.2)
[2024-06-08 02:43] LABS: Anion Gap 16.4 (5-19); Potassium 4.4 mmol/L (3.5-5.1)
[2024-06-08 03:25] LABS: Vitamin B12 310 pg/mL (232-1245)
--- NOTE | 2024-06-08 03:34 | PC.NURSE ---
Patient report was called to [facility] on [place]. All questions and concerns were addressed at time of report.
[2024-06-08] MEDS: sodium chloride 0.9% 1,000 ML 75 ML IV (03:59)
[2024-06-08] MEDS: tamsulosin 0.4 mg Capsule PO ×2 (04:00→20:37)
[2024-06-08 05:54] LABS: Basophils % 0.1 %; Eosinophils # 0.1 10^3/uL (0.0-0.8); Eosinophils % 0.7 %; Hematocrit 39.4 % (37-53); Lymphocytes # 1.3 10^3/uL (0.8-4.8); Lymphocytes % 16.8 %; Mean Corpuscular HGB Conc 33.5 g/dL (30-55); Mean Corpuscular Hemoglobin 30.8 pg (27-33); Mean Corpuscular Volume 92.1 fl (82-101); Mean Platelet Volume 9.5 fL (7.4-10.4); Monocytes # 0.5 10^3/uL (0.2-0.9); Monocytes % 7.2 %; Neutrophils # 5.59 10^3/uL (1.8-7.7); Neutrophils % 74.8 %; Nucleated Red Blood Cells % 0 %; Platelet Count 116 10^3/cmm (157-399); Red Blood Count 4.28 10^6/uL (3.85-5.65); Red Cell Distribution Width 14.2 % (12.1-15.1); White Blood Count 7.48 10^3/uL (3.29-11.43)
[2024-06-08 06:09] LABS: Anion Gap 15.2 (5-19); Blood Urea Nitrogen 29 mg/dL (8-23); Calcium 8.5 mg/dL (8.5-10.5); Carbon Dioxide 22 mmol/L (22-29); Chloride 106 mmol/L (98-107); Creatinine Clr Calc Pharmacy 59.8177; Glucose 129 mg/dL (65-115); Magnesium 2.1 mg/dL (1.7-2.3); Osmolality Calculated 296 mOsm/kg (285-295); Potassium 4.2 mmol/L (3.5-5.1); Sodium 139 mmol/L (136-145)
--- NOTE | 2024-06-08 08:29 | ANES.PREANE2 ---
Pre-Anesthetic Assessment Height/Weight: Height 5 ft 8 in Weight 139 lb Temp Pulse Resp BP Pulse Ox O2 Del Method 98.0 F 76 16 157/74 94 Room Air 06/08/24 07:14 06/08/24 07:14 06/08/24 07:14 06/08/24 07:14 06/08/24 07:14 06/08/24 07:14 Preop Diagnosis: Left hip fracture Operation Date: 06/08/24 09:30 Proposed Procedures p Trochanteric Femoral Nail(Left) - Tomasz Mullen MD Was Beta Mariusz taken within 24 hours: N/A Was Clonidine taken within 24 hours: N/A Last intake: Intake Last Liquid Date 06/07/24 Last Liquid Time 22:00 Last Solid Date 06/07/24 Last Solid Time 17:30 Social No alcohol and No tobacco Exam alert, oriented x 3, clear to auscultation bilaterally and regular rate & rhythm Airway Submandibular: within normal limits Cervical ROM: within normal limits Mallampati: Class II Comments: Comments: Upper dentures, multiple missing bottom teeth. Denies any loose Anesthetic Plan ASA status: 3 Anesthesia: General Other: Patient presents from home with left hip fracture this morning after a fall. Denies any loss of consciousness NPO since yesterday evening Patient has chronic back pain, s/p lumbar laminectomy BPH noted. Patient had to have prolonged catheterization following his back surgery Patient is not on any antihypertensive. Preop BP 157/74 Patient is an active individual, lives at home with . Worked in the yard on Monday Plan for general anesthesia Medications/Allergies Home Medications ?Medication ?Instructions ?Recorded ?Confirmed ?Last Taken ?Type aspirin 325 mg tablet 325 mg PO DAILY 02/25/21 06/08/24 03/30/21 History tamsulosin 0.4 mg capsule See Rx Instructions .Route 09/13/22 06/08/24 Unknown Rx .COMPLEX #90 caps Allergies Allergy/AdvReac Type Severity Reaction Status Date / Time Penicillins Allergy Mild rash-shortness Verified 06/07/24 22:05 of breath Current Medications Generic Name Dose Route Start Last Admin Trade Name Freq PRN Reason Stop Dose Admin Sodium Chloride 1,000 mls @ 75 mls/hr 06/08/24 02:45 06/08/24 03:59 Sodium Chloride 0.9% IV 06/08/24 14:00 75 mls/hr .[id number] JESUS MANUEL Administration Tamsulosin HCl 0.4 mg 06/08/24 04:00 06/08/24 04:00 Tamsulosin 0.4 Mg Capsule PO 0.4 mg BEDTIME JESUS MANUEL Administration PFS Anesthesia Medical History (Updated 06/08/24 @ 02:38 by Petros Kumar MD) Protein calorie malnutrition Bacteriuria Pyuria 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 Bladder followed by [facility] TAMSULOSIN initiated Surgical History (Updated 06/08/24 @ 02:38 by Petros Kumar MD) H/O neck surgery Hx of tonsillectomy Family History Father , AT 74 Heart disease Mother , AT 96 Stroke Other Hypertension Social History Smoking and tobacco/nicotine status: never used tobacco/nicotine Alcohol intake: never Substance/Drug Use: never Marital status: Current occupational status: retired Data Anesthesia 06/08/24 05:42 06/08/24 05:42 Short CBC 06/08/24 06/08/24 Range/Units 01:03 05:42 WBC 11.05 7.48 (3.29-11.43) 10^3/uL Hgb 14.40 13.20 (11.27-16.99) g/dL Hct 44.8 39.4 (37-53) % MCV 96.6 92.1 (82-101) fl Plt Count 123 L 116 L (157-399) 10^3/cmm Neut % (Auto) 67.6 74.8 % Neut # (Auto) 7.48 5.59 (1.8-7.7) 10^3/uL BMP 06/08/24 06/08/24 01:03 05:42 Sodium 140 139 Potassium 4.4 4.2 Chloride 106 106 Carbon Dioxide 22 22 BUN 30 H 29 H Creatinine 0.9 0.8 Glucose 112 129 H Calcium 8.8 8.5 Liver Function 06/08/24 Range/Units 01:03 Total Bilirubin 0.4 (0.15-1.2) mg/dL AST 21 (0-40) U/L ALT 16 (0-41) U/L Alkaline Phosphatase 84 (40-130) U/L Albumin 4.1 (3.5-5.2) g/dL Coags 06/08/24 02:12 PT 14.30 INR 1.04 Cardiac Studies: No Data to Display
--- NOTE | 2024-06-08 08:37 | PM.CONSULT ---
Providers/Reason For Consult Consulting Physician/Specialty*: Dr. Tomasz Mullen MD, orthopedics Reason for Consult*: Fractured lower left hip Attending Physician: Betsy Chen MD Primary Care Provider: Andrea Carreno MD History of Present Illness History of Present Illness Roc Arreaga is a 89 year old male who last night fell at home injuring his left hip. Patient admits he has had multiple falls in the last several months and has balance issues. He does not recall how he fell other than he was trying to turn around and he went down. No other complaints at this time. He is awake and alert at this time Review of Systems General: Reports: 10 or more systems reviewed and unremarkable except in HPI and below Const: Denies: fever(s) Eyes: Denies: change in vision or photophobia ENMT: Denies: throat pain or enlarged tonsils Card: Denies: chest pain Resp: Denies: dyspnea GI: Denies: abdominal pain : Denies: flank pain Musc: Reports: back pain; Denies: joint warmth Skin/Breast: Reports: rash Neuro: Denies: headache(s) Psych: Reports: anxiety Endo: Denies: polyuria All/Imm: Denies: acute wheezing Medications/Allergies Home Medications ?Medication ?Instructions ?Recorded ?Confirmed ?Last Taken ?Type aspirin 325 mg tablet 325 mg PO DAILY 02/25/21 06/08/24 03/30/21 History tamsulosin 0.4 mg capsule See Rx Instructions .Route 09/13/22 06/08/24 Unknown Rx .COMPLEX #90 caps Allergies Allergy/AdvReac Type Severity Reaction Status Date / Time Penicillins Allergy Mild rash-shortness Verified 06/07/24 22:05 of breath Current Medications Generic Name Dose Route Start Last Admin Trade Name Freq PRN Reason Stop Dose Admin Sodium Chloride 1,000 mls @ 75 mls/hr 06/08/24 02:45 06/08/24 03:59 Sodium Chloride 0.9% IV 06/08/24 14:00 75 mls/hr .[id number] JESUS MANUEL Administration Tamsulosin HCl 0.4 mg 06/08/24 04:00 06/08/24 04:00 Tamsulosin 0.4 Mg Capsule PO 0.4 mg BEDTIME JESUS MANUEL Administration PFSH Acute PFSH: Medical History (Updated 06/08/24 @ 02:38 by Petros Kumar MD) Protein calorie malnutrition Bacteriuria Pyuria 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 Bladder followed by [facility] TAMSULOSIN initiated Surgical History (Updated 06/08/24 @ 02:38 by Petros Kumar MD) H/O neck surgery Hx of tonsillectomy Family History Father , AT 74 Heart disease Mother , AT 96 Stroke Other Hypertension Social History Smoking and tobacco/nicotine status: never used tobacco/nicotine Alcohol intake: never Substance/Drug Use: never Marital status: Current occupational status: retired Vitals/I&O/Wt Last Vital Signs Temp 98.0 F 06/08/24 07:14 Pulse 76 06/08/24 07:14 Resp 16 06/08/24 07:14 BP 157/74 06/08/24 07:14 Pulse Ox 94 06/08/24 07:14 O2 Del Method Room Air 06/08/24 07:14 06/07/24 06/08/24 06/08/24 22:59 06:59 14:59 Output Total 300 / 300 Balance -300 / -300 Weight last 48 hrs Weight 139 lb Weight 139 lb 3 oz Weight 140 lb Physical Exam Narrative: On examination this morning patient is awake and alert only in a mild amount of distress. His is with him by the bedside. Left lower extremity is slightly shortened and externally rotated. He has tenderness to palpation about the hip as well as pain with any type of motion. Otherwise remainder leg is neurovascular intact with no other gross abnormalities. Urinary Catheter Management: Ford: Cath Placed During This Visit: yes Reason for Continuing Indwelling Catheter: Perioperative Use in Selected Surgeries Urinary Catheter Date of Insertion: 06/08/24 Urinary Catheter Time of Insertion: 03:20 Data 06/08/24 05:42 06/08/24 05:42 A&P Assessment and plan (1) Closed hip fracture: Patient been evaluated and x-rays were reviewed demonstrating a minimally to nondisplaced intertrochanteric hip fracture of the left hip. Qualifiers: Encounter type: initial encounter Laterality: left Qualified Code(s): S72.002A - Fracture of unspecified part of neck of left femur, initial encounter for closed fracture Plan Plan at this time is for a surgical repair of this fracture. All risk benefits treatment alternatives were discussed with he and his and they are agreeable with the surgical plan. Plan for surgery this a.m. PDMP PDMP Reviewed: Not Reviewed Consult Attestations Medical Necessity Statement: Patient has left hip fracture requiring surgical intervention. He will require hospital stay greater than 2 midnights for recovery for pain control and monitoring of his blood count. Coding Level of Care Code Acute Code for [facility] Fwd Diagnoses Closed hip fracture S72.002A Encounter type: initial encounter Laterality: left
--- NOTE | 2024-06-08 09:15 | XR_ITS ---
WS: [id number] XR hip LT 2-3V wo/w pel* [id number] REASON FOR EXAM: LT HIP ORIF; OR PICS FINDINGS: Short intramedullary john and long femoral nail fixation of intertrochanteric fracture. Fracture fragments are in good position and alignment. Surgical appliances are intact and in proper position and alignment. XR/XR hip LT 2-3V wo/w pel* [id number] IMPRESSION: Intertrochanteric fracture with fixation without abnormality.
[2024-06-08] MEDS: clindamycin 300 MG/50 ML PREMIX 100 MG IV ×2 (09:24→17:54)
[2024-06-08] MEDS: tranexamic acid 1,000 mg/10mL SDV 1000 MG IV (09:59)
--- NOTE | 2024-06-08 11:22 | ANE.PACU2 ---
Inpatient post-anesthesia follow up: Airway intact: Yes Vital signs: Temperature 97.9 F Pulse Rate 98 Respiratory Rate 18 Blood Pressure 154/66 Pulse Oximetry 98 Oxygen Delivery Me thod Room Air Oxygen Flow Rate Fraction of Inspir ed Oxygen Hydration adequate: Yes Nausea and vomiting: No Pain level: 1 Mental status: Baseline
--- NOTE | 2024-06-08 11:29 | PM.OP ---
Operative Report Date of procedure: June 08, 2024 Surgeon: Tomasz Mullen MD Procedure: Preop diagnosis: Left intertrochanteric hip fracture, minimally displaced Postop diagnosis: Same Procedure: Closed reduction with internal fixation of left hip fracture Surgeon: Tomasz Mullen MD Anesthesia: General EBL: 200 cc Complications: None Indications: Roc is an 89-year-old white male who fell last night at home injuring his left hip. He was seen in the ED over the early a.m. hours and subsequent admitted to the hospitalist service after orthopedic consultation was obtained. Upon evaluating the patient is found that he had a minimally displaced intertrochanteric hip fracture on the left. He is an ambulator though has had multiple falls recently. At this time is felt patient would most benefit from closed possible open reduction with internal fixation of his left hip fracture. All risk benefits of treatment alternatives were discussed with the family and they are agreeable to this as well as the patient. Procedure: After obtaining written consent patient was taken to the operating room and still in his hospital bed he had a general anesthetic administered. Once good anesthesia was achieved patient placed up on fracture table and positioned appropriately. He is secured to the bed. Left leg was placed in traction boot right leg was positioned out of the way and well-padded. Interoperative fluoroscopy in both AP and lateral views demonstrated adequate reduction of the fracture after gentle traction and manipulation. Left hip and leg were prepped and draped usual fashion. At this point surgical timeout was done. Once completed fluoroscopy was used to find the superior tip of the greater trochanter of the left hip. Incision was made proximal to this measuring approximately 4 to 5 cm in length. Sharp dissection taken all the way down to the fascia and down to the tip of the greater trochanter. Starting awl was then placed in the proximal tip of the greater trochanter and driven into the bone. Guidewire was placed down through this and confirmed down through the interventionally canal the femur. Reaming was done. A size 10 short gamma nail was then selected. It was placed on a drill guide and then slid down and then driven down over the guidewire into the femur. Intraoperative fluoroscopy demonstrated positioning of this john until the lag screw drill hole was in appropriate position. Drill sleeve for the lag screw was placed through the drill guide and a stab wound was made in the lateral thigh and through the tensor fascia bronwyn all the way down to bone. Drill guide was placed up on the femur guidepin was positioned into the femoral neck and head and adjusted as needed on both AP and lateral views. There is then positioned in slightly inferior posterior position of the lag screw. Depth of the screw was measured at 105 mm and therefore the guide john was reamed to that depth within the femoral neck and head. A size 105 mm lag screw was placed all the way up into the femoral head neck and confirmed under fluoroscopy. Locking screws placed at the proximal nail down locking the lag screw to the interventionally nail. At this point the drill sleeve for the locking screw distally was placed as a guide stab wound was placed in the lateral thigh and in similar fashion guide was placed already down to the lateral cortex of the femur. This is drilled to the appropriate depth and confirmed our fluoroscopic evaluation. Measurement of the depth of the screw was made off the drill guide. A size 40 bicortical screw was placed without any difficulties and confirmed under fluoroscopic evaluation. At this point drill guide was removed interoperative fluoroscopy in both AP and lateral views demonstrated adequate reduction and fixation of the fracture. Wounds were then washed with copious months of sterile irrigation. Deep fascia was closed in the upper wound with 0 Vicryl [id number] sutures. Subcutaneous tissue was approximate with 0 Vicryl interrupted sutures through the remaining incisions. Skin arianna used to close the skin. Wounds are cleaned and dried dressed with a Adaptic dressing sterile gauze dressing ABDs and adhesive tape. Patient was awakened and transferred back to his hospital bed and then to the
--- NOTE | 2024-06-08 13:58 | PC.PT ---
Spoke with nurse Miri at 1400 and she stated patient was groggy still from surgery. Prefer hold on therapy evaluation at this time.
--- NOTE | 2024-06-08 14:05 | ECG_ITS ---
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: : [id number] Requested By: Petros Kumar Order Number: [id number] Reading MD: PETROS MINAYA Measurements Intervals [place] Rate: 87 P: 51 WV: 180 QRS: 62 QRSD: 158 T: 1 QT: 423 QTc: 510 Interpretive Statements SINUS RHYTHM POSSIBLE LEFT ATRIAL ENLARGEMENT [-0.1mV P-WAVE IN V1/V2] INDETERMINATE AXIS RIGHT BUNDLE BRANCH BLOCK [120+ ms QRS DURATION, UPRIGHT V1, 40+ ms S IN I/aVL/V4/V5/V6] Compared to ECG 03/29/2021 10:52:14 Indeterminate axis now present Electronically Signed On 06-09-2024 21:08:52 BUSINESS INVESTOR by PETROS MINAYA [email or web address]
--- NOTE | 2024-06-08 15:14 | PM.MISC ---
Miscellaneous Note Purpose of Documentation: Overnight labs and H&P reviewed. Patient is status post close reduction with internal fixation of the left fracture. Tolerated procedure well. Brought back to MedSurg.Febrile this morning to 100F, check UA, resp panel, atelactasis noted left lung base. start levaquin empircally
[2024-06-08] MEDS: levofloxacin-dextrose 5 % 750 MG/150 ML PREMIX 100 MG IV (15:39)
[2024-06-08] MEDS: sennosides-docusate Tablet 2 TAB PO (17:53)
[2024-06-08 18:41] LABS: Bilirubin Urine Negative (Negative); Blood Urine 1+ (Negative); Glucose Urine UA 3+ (Normal); Ketones Urine Trace (Negative); Leukocyte Esterase Urine Negative (Negative); Nitrate Urine Negative (Negative); Protein Urine Trace (Negative); Urine Appearance Clear (CLEAR); Urine Color Yellow (Yellow)
[2024-06-08 18:44] LABS: Add Urine Microscopic? YES; Bacteria Urine None Seen /hpf; Hyaline Casts Urine 0-4 /lpf; Squamous Epithelial Cell Urine 0-5 /hpf (0-5); WBC Urine 51-100 /hpf (0-5)
[2024-06-08 18:48] LABS: Specific Gravity, Urine 1.036 (1.005-1.030)
[2024-06-08 18:49] LABS: Add Urine Culture? Yes
[2024-06-08 20:31] LABS: Adenovirus Not Detected (NOT DETECT); Chlamydia Pneumoniae Not Detected (NOT DETECT); Coronavirus 229E,HKU1,NL63,OC4 Not Detected (NOT DETECT); Human Metapneumovirus Not Detected (NOT DETECT); Human Rhinovirus/Enterovirus Not Detected (NOT DETECT); Influenza A Not Detected (NOT DETECT); Influenza A H1 Not Detected (NOT DETECT); Influenza A H1-2009 Not Detected (NOT DETECT); Influenza A H3 Not Detected (NOT DETECT); Influenza B Not Detected (NOT DETECT); Mycoplasma Pneumoniae Not Detected (NOT DETECT); Parainfluenza Virus Type 1 Not Detected (NOT DETECT); Parainfluenza Virus Type 2 Not Detected (NOT DETECT); Parainfluenza Virus Type 3 Not Detected (NOT DETECT); Parainfluenza Virus Type 4 Not Detected (NOT DETECT); Respiratory Syncytial Virus A Not Detected (NOT DETECT); Respiratory Syncytial Virus B Not Detected (NOT DETECT); SARS-COV-2 Not Detected (NOT DETECT)
[2024-06-09] VITALS (8 sets, daily range): BP systolic 114–139; BP diastolic 61–68; PULSE 75–103; RESP 14–18; TEMP 36.4–37.4; O2SAT 94–98
[2024-06-09] MEDS: clindamycin 300 MG/50 ML PREMIX 100 MG IV ×2 (00:19→10:00)
[2024-06-09 05:41] LABS: Basophils % 0.1 %; Eosinophils # 0.1 10^3/uL (0.0-0.8); Eosinophils % 0.6 %; Hematocrit 31.1 % (37-53); Lymphocytes # 1.3 10^3/uL (0.8-4.8); Lymphocytes % 14.7 %; Mean Corpuscular HGB Conc 33.1 g/dL (30-55); Mean Corpuscular Hemoglobin 31.2 pg (27-33); Mean Corpuscular Volume 94.2 fl (82-101); Monocytes # 0.6 10^3/uL (0.2-0.9); Monocytes % 7.1 %; Neutrophils # 6.87 10^3/uL (1.8-7.7); Neutrophils % 77.3 %; Nucleated Red Blood Cells % 0 %; Platelet Count 100 10^3/cmm (157-399); Red Cell Distribution Width 14.2 % (12.1-15.1); White Blood Count 8.89 10^3/uL (3.29-11.43)
[2024-06-09 05:57] LABS: Alanine Aminotransferase 13 U/L (0-41); Albumin Level 3.4 g/dL (3.5-5.2); Alkaline Phosphatase 59 U/L (40-130); Anion Gap 15.3 (5-19); Aspartate Amino Transferase 17 U/L (0-40); Blood Urea Nitrogen 28 mg/dL (8-23); Carbon Dioxide 22 mmol/L (22-29); Chloride 105 mmol/L (98-107); Creatinine Clr Calc Pharmacy 53.1713; Globulin 1.8 g/dL (1.3-4.6); Glucose 140 mg/dL (65-115); Osmolality Calculated 294 mOsm/kg (285-295); Potassium 4.3 mmol/L (3.5-5.1); Sodium 138 mmol/L (136-145); Total Protein 5.2 g/dL (6.6-8.7)
--- NOTE | 2024-06-09 09:30 | P.PN_ITS ---
Subjective 2 Subjective: Patient is 1 day status post internal fixation of left intertrochanteric hip fracture. He is up to a chair. He is awake and alert and states he is feeling pretty good. He did have pain last night around 2 AM. No other concerns at this time. He is asking if he can get up and start to walk today. Vitals/I&O/Wt Last Vital Signs Temp 98.8 F 06/09/24 08:00 Pulse 75 06/09/24 08:00 Resp 16 06/09/24 08:00 BP 117/65 06/09/24 08:00 Pulse Ox 94 06/09/24 08:00 O2 Del Method Room Air 06/09/24 08:00 06/08/24 06/09/24 06/09/24 22:59 06:59 14:59 Intake Total 1891.25 / 1.25 50 / 2091.25 Output Total 550 / 850 Balance 1891.25 / 1741.25 -500 / 1241.25 Weight last 48 hrs Weight 139 lb Weight 139 lb 3 oz Weight 140 lb Physical Exam 2 Narrative: On examination this morning patient is awake and alert only in a mild amount of distress. Patient is up to a chair today. Dressings are clear patient is neurovascular intact left lower extremity. No other gross abnormalities to report at this time. Urinary Catheter Management: Ford: Cath Placed During This Visit: yes, but has since been removed by the nurse Reason for Continuing Indwelling Catheter: Perioperative Use in Selected Surgeries Urinary Catheter Date of Insertion: 06/08/24 Urinary Catheter Time of Insertion: 03:20 Date Urinary Catheter Removed: 06/09/24 Time Urinary Catheter Discontinued: 06:38 Data 06/09/24 05:23 06/09/24 05:23 A&P Assessment and plan (1) Closed hip fracture: Patient is status post gamma nail fixation of left intertrochanteric hip fracture. All is going well today. I will go ahead and advance his activities. H&H is stable Qualifiers: Encounter type: initial encounter Laterality: left Qualified Code(s): S72.002A - Fracture of unspecified part of neck of left femur, initial encounter for closed fracture Plan Plan at this time is for further physical therapy with walker ambulation with partial weightbearing on the left lower extremity. Patient continues to need assistance with ADLs PDMP PDMP Reviewed: Not Reviewed Attestations 2 Medical Necessity Statement*: Patient is s/p open reduction internal fixation of left hip fracture. Patient in need of physical therapy and continued assistance with ADLs. Discharge planning is necessary also Coding Level of Care Code 90929 Diagnoses Closed hip fracture S72.002A Encounter type: initial encounter Laterality: left
[2024-06-09] MEDS: sennosides-docusate Tablet 2 TAB PO ×2 (10:00→17:28)
[2024-06-09] MEDS: aspirin 325 mg EC Tablet PO (10:00)
--- NOTE | 2024-06-09 16:47 | PM.PN ---
Subjective Subjective: Feels well today. Pain is well-controlled. No fever last 24 hours. Medications: Reviewed: Yes Vitals/I&O/Wt Last Vital Signs Temp 98.5 F 06/09/24 12:00 Pulse 86 06/09/24 12:00 Resp 16 06/09/24 12:00 BP 116/61 06/09/24 12:00 Pulse Ox 96 06/09/24 12:00 O2 Del Method Room Air 06/09/24 12:00 06/09/24 06/09/24 06/09/24 06:59 14:59 22:59 Intake Total 50 / 1.25 170 / 170 Output Total 550 / 850 200 / 200 Balance -500 / 1241.25 170 / 170 -200 / -30 Weight last 48 hrs Weight 63.049 kg Weight 63.134 kg Weight 63.503 kg Physical Exam Urinary Catheter Management: Ford: Cath Placed During This Visit: yes, but has since been removed by the nurse Reason for Continuing Indwelling Catheter: Perioperative Use in Selected Surgeries Urinary Catheter Date of Insertion: 06/08/24 Urinary Catheter Time of Insertion: 03:20 Date Urinary Catheter Removed: 06/09/24 Time Urinary Catheter Discontinued: 06:38 Data 06/09/24 05:23 06/09/24 05:23 A&P Assessment and plan (1) Closed hip fracture: Qualifiers: Encounter type: initial encounter Laterality: left Qualified Code(s): S72.002A - Fracture of unspecified part of neck of left femur, initial encounter for closed fracture (2) Traumatic fracture of ribs of right side with pneumothorax: (3) Fall: Qualifiers: Encounter type: initial encounter Qualified Code(s): W19.XXXA - Unspecified fall, initial encounter (4) Lumbar stenosis with neurogenic claudication: (5) Status post lumbar laminectomy: Plan Mechanical fall Ground-level fall No syncope or chest pain or seizure related activity, no sign of cauda equina Patient fairly active for his age Previous history of neurogenic claudication High risk for falls Not endorsing significant past medical history No recent chest pain, preoperative class I risk, no preoperative cardiac stress test indicated at this point, N.p.o. Orthopedic consulted DVT prophylaxis SCDs for now History of BPH, patient retaining urine I have requested Ford catheter placement, he may benefit from coud? catheter I will continue IV fluid for hydration Opioids along bowel regimen Will request physical therapy after the surgery Patient has essential tremors, high risk for falls June 08 2024 Patient is status post close reduction with internal fixation of the left fracture. Tolerated procedure well. Brought back to [facility].Febrile this morning to 100F, check UA, resp panel, atelactasis noted left lung base. start levaquin empircally 06/09/2024 Postop day 1. States pain is well-controlled. Awaiting therapy assessment for appropriate disposition planning. Afebrile last 24 hours. Respiratory viral panel was negative. Urine analysis with 5200 WBCs, negative nitrate and negative leukocyte esterase. Awaiting urine culture. Chest x-ray had shown atelectasis on the left lung base. Possibly fever may have been related to the atelectasis. Currently on empiric levofloxacin until urine cultures result. Discontinue perioperative prophylaxis with clindamycin. DVT prophylaxis: Aspirin 325 mg p.o. daily. PDMP PDMP Reviewed: Not Reviewed Attestations Medical Necessity Statement*: Awaiting appropriate disposition planning. Coding Level of Care Code Acute Code for g Fwd Diagnoses Closed hip fracture S72.002A Encounter type: initial encounter Laterality: left Traumatic fracture of ribs of right side with pneumothorax S22.41XA; S27.0XXA Fall W19.XXXA Encounter type: initial encounter Lumbar stenosis with neurogenic claudication M48.062 Status post lumbar laminectomy Z98.890
[2024-06-09] MEDS: levoFLOXacin 750 mg Tablet PO (17:28)
[2024-06-09] MEDS: tamsulosin 0.4 mg Capsule PO (21:17)
[2024-06-10 04:36] VITALS: BP 163/82; PULSE 93; RESP 16; TEMP 36.9; O2SAT 95
[2024-06-10 06:31] LABS: Basophils % 0.5 %; Eosinophils # 0.4 10^3/uL (0.0-0.8); Eosinophils % 4.4 %; Lymphocytes # 1.5 10^3/uL (0.8-4.8); Lymphocytes % 18.3 %; Mean Corpuscular HGB Conc 32.8 g/dL (30-55); Mean Corpuscular Hemoglobin 30.5 pg (27-33); Mean Corpuscular Volume 93.2 fl (82-101); Mean Platelet Volume 9.6 fL (7.4-10.4); Monocytes # 0.7 10^3/uL (0.2-0.9); Monocytes % 8.7 %; Neutrophils # 5.39 10^3/uL (1.8-7.7); Neutrophils % 67.6 %; Nucleated Red Blood Cells % 0 %; Platelet Count 100 10^3/cmm (157-399); Red Blood Count 3.11 10^6/uL (3.85-5.65); Red Cell Distribution Width 14.4 % (12.1-15.1); White Blood Count 7.97 10^3/uL (3.29-11.43)
[2024-06-10 06:56] LABS: Alanine Aminotransferase 22 U/L (0-41); Albumin Level 3.2 g/dL (3.5-5.2); Alkaline Phosphatase 66 U/L (40-130); Anion Gap 14.2 (5-19); Aspartate Amino Transferase 30 U/L (0-40); Blood Urea Nitrogen 26 mg/dL (8-23); Carbon Dioxide 20 mmol/L (22-29); Chloride 107 mmol/L (98-107); Creatinine Clr Calc Pharmacy 59.6541; Globulin 1.9 g/dL (1.3-4.6); Glucose 101 mg/dL (65-115); Osmolality Calculated 289 mOsm/kg (285-295); Potassium 4.2 mmol/L (3.5-5.1); Sodium 137 mmol/L (136-145); Total Bilirubin 0.7 mg/dL (0.15-1.2); Total Protein 5.1 g/dL (6.6-8.7)
[2024-06-10] MEDS: sennosides-docusate Tablet 2 TAB PO ×2 (07:51→17:19)
[2024-06-10] MEDS: aspirin 325 mg EC Tablet PO (07:51)
[2024-06-10 08:00] VITALS: BP 154/66; PULSE 98; RESP 17; TEMP 37.2; O2SAT 97
--- NOTE | 2024-06-10 10:03 | PC.CHAP ---
Pastoral Care Encounter/Spiritual Assessment Type of Contact [] Declined metal stamper visit [] Patient/Family/Request visit [] Outpatient visit [] Follow-up visit [] Physician referral [] Code/Alert [x] Routine visit [] Staff referral [] Actively dying [] Patient sleeping [] Family support [] [] Out of room [] Palliative care [] [] Receiving care in room [] Pre-surgical visit [] Trauma [] Long length of stay [] ICU visit [] Other: Relational/Emotional Strength [] Patient feels connected with others/family/visitors/staff [] Distress [] Loneliness/isolation [] Abandonment Spirituality of Patient [x] Person of Briseida [] Attends [employer] of their Briseida [x] Believes in Prayer [] Reads Bible or Gnosticism materials [] There are Spiritual issues to be addressed Metal Stamper Interventions [x] Prayer [x] Active listening [] Non-anxious presence [] Spiritual/emotional support [] Crisis/trauma care [] Spiritual counseling [] Bereavement support [] Provided bereavement packet [x] Provided Bible/devotional materials [] Provided toy/stuffed animal, coloring book to patient or family member [] Provided Communion [] Anointing/[place] [] Salvation [x] Completed spiritual assessment [] Other: Impact on Illness or Injury [] Angry [] Fearful [] Anxious [] Often cries [] Exhaustion [] Unable to work [] Unable to attend church [] Unable to walk/stand [] Unable to read [] Unable to drive [] Unable to eat/drink [] Unable to sleep [] Unable to be with family [] Patient intubated [] Other: Summary Time spent with patient 10 min
[2024-06-10 12:00] VITALS: BP 154/66; PULSE 100; RESP 19; TEMP 36.6; O2SAT 97
--- NOTE | 2024-06-10 12:35 | P.PN_ITS ---
Subjective 2 Subjective: Seen this morning. As per nursing staff patient has been requiring sit to stand to get up from chair. He does have a regular walker at home. Patient is requesting a rollator. Patient was also standing earlier and fell backwards on the bed. They were worried about his physical status going home with who is elderly herself. will not be able to take care of him. He will be working with physical therapy again today for reassessment. He may need to go to short-term rehab to which the patient and are agreeable to. Vitals/I&O/Wt Last Vital Signs Temp 98.9 F 06/10/24 08:00 Pulse 98 06/10/24 08:00 Resp 17 06/10/24 08:00 BP 154/66 06/10/24 08:00 Pulse Ox 97 06/10/24 08:00 O2 Del Method Room Air 06/10/24 08:00 06/09/24 06/10/24 06/10/24 22:59 06:59 14:59 Intake Total 360 / 530 240 / 770 Output Total 600 / 600 600 / 1200 375 / 375 Balance -240 / -70 -360 / -430 -375 / -375 Weight last 48 hrs Weight 62.596 kg Physical Exam 2 Narrative: Awake and alert S1, S2 Currently on room air Pleasant and cooperative Low extremity no neurovascular compromise Pleasant and cooperative No sign of stroke Abdomen soft Patient's at bedside. GCS 15 AOx4 Urinary Catheter Management: Ford: Cath Placed During This Visit: yes, but has since been removed by the nurse Reason for Continuing Indwelling Catheter: Other Urinary Catheter Date of Insertion: 06/08/24 Urinary Catheter Time of Insertion: 03:20 Date Urinary Catheter Removed: 06/09/24 Time Urinary Catheter Discontinued: 06:00 Data 06/10/24 06:08 06/10/24 06:08 Micro: Microbiology 06/08/24 18:35 Urine Culture - Preliminary Urine,Clean Catch A&P Assessment and plan (1) Closed hip fracture: Qualifiers: Encounter type: initial encounter Laterality: left Qualified Code(s): S72.002A - Fracture of unspecified part of neck of left femur, initial encounter for closed fracture (2) Traumatic fracture of ribs of right side with pneumothorax: (3) Fall: Qualifiers: Encounter type: initial encounter Qualified Code(s): W19.XXXA - Unspecified fall, initial encounter (4) Lumbar stenosis with neurogenic claudication: (5) Status post lumbar laminectomy: Plan Mechanical fall Ground-level fall No syncope or chest pain or seizure related activity, no sign of cauda equina Patient fairly active for his age Previous history of neurogenic claudication High risk for falls Not endorsing significant past medical history No recent chest pain, preoperative class I risk, no preoperative cardiac stress test indicated at this point, N.p.o. Orthopedic consulted DVT prophylaxis SCDs for now History of BPH, patient retaining urine I have requested Ford catheter placement, he may benefit from coud? catheter I will continue IV fluid for hydration Opioids along bowel regimen Will request physical therapy after the surgery Patient has essential tremors, high risk for falls June 08 2024 Patient is status post close reduction with internal fixation of the left fracture. Tolerated procedure well. Brought back to [facility].Febrile this morning to 100F, check UA, resp panel, atelactasis noted left lung base. start levaquin empircally 06/09/2024 Postop day 1. States pain is well-controlled. Awaiting therapy assessment for appropriate disposition planning. Afebrile last 24 hours. Respiratory viral panel was negative. Urine analysis with 5200 WBCs, negative nitrate and negative leukocyte esterase. Awaiting urine culture. Chest x-ray had shown atelectasis on the left lung base. Possibly fever may have been related to the atelectasis. Currently on empiric levofloxacin until urine cultures result. Discontinue perioperative prophylaxis with clindamycin. 06/10/2024 Postop day 2. Pain is well-controlled. Patient may require rehab and will be going through physical therapy assessment today. Family and patient agreeable to short-term rehab if required. Patient is unsafe to go home at this time. He has been requiring the sit to stand and has fallen backwards on the bed when standing with nursing staff at bedside. He does not seem to be steady on his feet. Rollator walker has also been ordered by case management at this time. If patient can demonstrate safety awareness going forward may consider discharge home tomorrow. DVT prophylaxis: Aspirin 325 mg p.o. daily. PDMP PDMP Reviewed: Not Reviewed Attestations 2 Medical Necessity Statement*: Awaiting appropriate disposition planning. Diagnoses Closed hip fracture S72.002A Encounter type: initial encounter Laterality: left Traumatic fracture of ribs of right side with pneumothorax S22.41XA; S27.0XXA Fall W19.XXXA Encounter type: initial encounter Lumbar stenosis with neurogenic claudication M48.062 Status post lumbar laminectomy Z98.890
[2024-06-10 13:02] VITALS: PULSE 98; RESP 18; O2SAT 98
--- NOTE | 2024-06-10 15:22 | PC.SOCIAL ---
IMM updated IMM dated and initialed, copy given to patient and copy placed in chart
[2024-06-10 16:00] VITALS: BP 173/80; PULSE 90; RESP 19; TEMP 36.8; O2SAT 97
--- NOTE | 2024-06-10 16:22 | P.PN_ITS ---
Subjective 2 Subjective: Seen this afternoon. He is sleeping comfortably. Family indicates that he was up and walking and did quite well. They are working on getting him a walker that he is more functional with. He has a walker at home but he would like 1 with rollers. Medications: Reviewed: Yes Vitals/I&O/Wt Last Vital Signs Temp 97.9 F 06/10/24 12:00 Pulse 98 06/10/24 13:02 Resp 18 06/10/24 13:02 BP 154/66 06/10/24 12:00 Pulse Ox 98 06/10/24 13:02 O2 Del Method Room Air 06/10/24 13:02 06/10/24 06/10/24 06/10/24 06:59 14:59 22:59 Intake Total 240 / 770 120 / 120 Output Total 600 / 1200 375 / 375 300 / 675 Balance -360 / -430 -255 / -255 -300 / -555 Weight last 48 hrs Weight 138 lb Physical Exam 2 Narrative: On orthopedic exam today patient has sleeping in bed. He is comfortable. Viewing of his dressings indicate they are dry clear. No other gross abnormalities are noted at this time. Urinary Catheter Management: Ford: Cath Placed During This Visit: yes, but has since been removed by the nurse Reason for Continuing Indwelling Catheter: Other Urinary Catheter Date of Insertion: 06/08/24 Urinary Catheter Time of Insertion: 03:20 Date Urinary Catheter Removed: 06/09/24 Time Urinary Catheter Discontinued: 06:00 Data 06/10/24 06:08 06/10/24 06:08 Micro: Microbiology 06/08/24 18:35 Urine Culture - Preliminary Urine,Clean Catch A&P Assessment and plan (1) Closed hip fracture: Patient is status post gamma nail fixation of left intertrochanteric hip fracture. All is going well today. It Risk And Assurance Manager is working on short-term rehab placement at this time. Family is agreeable to this Qualifiers: Encounter type: initial encounter Laterality: left Qualified Code(s): S72.002A - Fracture of unspecified part of neck of left femur, initial encounter for closed fracture Plan Plan at this time is for short-term rehab stay. At this time he may leave from an orthopedic standpoint if he is going to a nursing facility. All appears to be is going well and H&H remained stable PDMP PDMP Reviewed: Not Reviewed Attestations 2 Medical Necessity Statement*: Patient needing assistance with ADLs as well as physical therapy. Coding Level of Care Code 63866 Diagnoses Closed hip fracture S72.002A Encounter type: initial encounter Laterality: left
[2024-06-10] MEDS: levoFLOXacin 750 mg Tablet PO (17:20)
[2024-06-10] MEDS: tamsulosin 0.4 mg Capsule PO (20:37)
[2024-06-10 20:44] VITALS: BP 131/62; PULSE 86; RESP 16; TEMP 37.1; O2SAT 97
[2024-06-11 00:02] VITALS: BP 123/89; PULSE 83; RESP 18; TEMP 36.8; O2SAT 96
[2024-06-11 04:08] VITALS: BP 134/68; PULSE 77; RESP 18; TEMP 36.6; O2SAT 98
[2024-06-11 06:20] LABS: Basophils % 0.4 %; Eosinophils # 0.3 10^3/uL (0.0-0.8); Eosinophils % 4.8 %; Lymphocytes # 1.4 10^3/uL (0.8-4.8); Lymphocytes % 20.3 %; Mean Corpuscular HGB Conc 33.6 g/dL (30-55); Mean Corpuscular Hemoglobin 31.5 pg (27-33); Mean Platelet Volume 9.5 fL (7.4-10.4); Monocytes # 0.6 10^3/uL (0.2-0.9); Neutrophils # 4.64 10^3/uL (1.8-7.7); Neutrophils % 66.1 %; Nucleated Red Blood Cells % 0 %; Platelet Count 105 10^3/cmm (157-399); Red Blood Count 2.98 10^6/uL (3.85-5.65); Red Cell Distribution Width 14.1 % (12.1-15.1); White Blood Count 7.03 10^3/uL (3.29-11.43)
[2024-06-11 06:45] LABS: Blood Urea Nitrogen 22 mg/dL (8-23); Calcium 8.1 mg/dL (8.5-10.5); Carbon Dioxide 21 mmol/L (22-29); Chloride 103 mmol/L (98-107); Creatinine Clr Calc Pharmacy 60.7515; Glucose 98 mg/dL (65-115); Osmolality Calculated 283 mOsm/kg (285-295); Sodium 135 mmol/L (136-145)
[2024-06-11 07:55] VITALS: BP 133/72; PULSE 89; RESP 16; TEMP 36.4; O2SAT 96
[2024-06-11] MEDS: aspirin 325 mg EC Tablet PO (08:19)
--- NOTE | 2024-06-11 09:24 | PM.PN ---
Subjective Subjective: Patient seen this morning. No acute overnight events. He reports sleeping okay and feeling well this morning. He states that he was able to walk around with his walker and is not feeling pain this morning. Vitals/I&O/Wt Last Vital Signs Temp 97.5 F L 06/11/24 07:55 Pulse 89 06/11/24 07:55 Resp 16 06/11/24 07:55 BP 133/72 06/11/24 07:55 Pulse Ox 96 06/11/24 07:55 O2 Del Method Room Air 06/11/24 07:55 06/10/24 06/11/24 06/11/24 22:59 06:59 14:59 Intake Total 300 / 420 120 / 540 120 / 120 Output Total 1000 / 1375 200 / 1575 Balance -700 / -955 -80 / -1035 120 / 120 Weight last 48 hrs Weight 65.635 kg Weight 62.596 kg Physical Exam Const: COMMON NORMALS: no acute distress and patient oriented x3 Resp: COMMON NORMALS: normal respiratory effort and clear to auscultation bilaterally AUSCULTATION: clear to auscultation bilaterally Cardio: COMMON NORMALS: regular rate, regular rhythm, S1 normal heart sound present and S2 normal heart sound present RATE: regular rate RHYTHM: regular rhythm HEART SOUNDS: S1 normal heart sound present and S2 normal heart sound present GI: COMMON NORMALS: Normal to inspection, nondistended, normoactive bowel sounds present Neuro: COMMON NORMALS: patient oriented x3 Urinary Catheter Management: Ford: Cath Placed During This Visit: yes, but has since been removed by the nurse Reason for Continuing Indwelling Catheter: Other Urinary Catheter Date of Insertion: 06/08/24 Urinary Catheter Time of Insertion: 03:20 Date Urinary Catheter Removed: 06/09/24 Time Urinary Catheter Discontinued: 06:00 Data 06/11/24 05:55 06/11/24 05:55 Micro: Microbiology 06/08/24 18:35 Urine Culture - Preliminary Urine,Clean Catch A&P Assessment and plan Plan Mechanical fall Ground-level fall No syncope or chest pain or seizure related activity, no sign of cauda equina Patient fairly active for his age Previous history of neurogenic claudication High risk for falls Not endorsing significant past medical history No recent chest pain, preoperative class I risk, no preoperative cardiac stress test indicated at this point, N.p.o. Orthopedic consulted DVT prophylaxis SCDs for now History of BPH, patient retaining urine I have requested Ford catheter placement, he may benefit from coud? catheter I will continue IV fluid for hydration Opioids along bowel regimen Will request physical therapy after the surgery Patient has essential tremors, high risk for falls June 08 2024 Patient is status post close reduction with internal fixation of the left fracture. Tolerated procedure well. Brought back to [facility].Febrile this morning to 100F, check UA, resp panel, atelactasis noted left lung base. start levaquin empircally 06/09/2024 Postop day 1. States pain is well-controlled. Awaiting therapy assessment for appropriate disposition planning. Afebrile last 24 hours. Respiratory viral panel was negative. Urine analysis with 5200 WBCs, negative nitrate and negative leukocyte esterase. Awaiting urine culture. Chest x-ray had shown atelectasis on the left lung base. Possibly fever may have been related to the atelectasis. Currently on empiric levofloxacin until urine cultures result. Discontinue perioperative prophylaxis with clindamycin. 06/10/2024 Postop day 2. Pain is well-controlled. Patient may require rehab and will be going through physical therapy assessment today. Family and patient agreeable to short-term rehab if required. Patient is unsafe to go home at this time. He has been requiring the sit to stand and has fallen backwards on the bed when standing with nursing staff at bedside. He does not seem to be steady on his feet. Rollator walker has also been ordered by case management at this time. If patient can demonstrate safety awareness going forward may consider discharge home tomorrow. DVT prophylaxis: Aspirin 325 mg p.o. daily. 06/11/2024 Postop day 3 Plan at this time is for short-term rehab stay. At this time he may leave from an orthopedic standpoint if he is going to a nursing facility. All appears to be is going well and H&H remained stable PDMP PDMP Reviewed: Not Reviewed Coding Level of Care Code Acute Code for Chg Fwd
[2024-06-11 10:00] VITALS: PULSE 89; RESP 16; O2SAT 98
--- NOTE | 2024-06-11 10:57 | P.DS_ITS ---
Documented by User: Jj Chavez 06/11/24 11:14 Discharge Providers Date of Admission: 06/08/24 02:12 Date of Discharge: June 11, 2024 Attending Provider at Admission: Petros Kuamr MD Attending Provider at Discharge: Keren Downey MD Primary Care Provider: Andrea Carreno MD Diagnoses at Discharge Discharge Diagnosis (1) Closed hip fracture: Status: Acute Qualifiers: Encounter type: initial encounter Laterality: left Qualified Code(s): S72.002A - Fracture of unspecified part of neck of left femur, initial encounter for closed fracture Reason for Visit Reason for Visit: Fall,Numbness,Pain Hospital Course Hospital Course Roc Arreaga is an 89 y/o M with no significant PMHx who presented to the ER on 06/07 for evaluation post mechanical fall with left hip pain. Patient fell down landed on his left hip and was unable to move his hip and leg without pain. Hip/Pelvis X-Ray showed evidence of suspected nondisplaced incomplete hip fracture. Further evaluation with Pelvis CT showed comminuted left intertrochanteric femur fracture and decreased bone density. IV fluid was administered and continued for hydration. Orthopedics was consulted and surgery was recommended. Patient tolerated procedure well. Patient was febrile post operation and showed evidence of atelectasis in left lung base on CXR. Patient was started on empiric levofloxacin and perioperative prophylaxis with clindamycin was discontinued. Respiratory viral panel was negative. DVT prophy laxis with aspirin. Post-op day 3, patient was able to walk with walker with minimal pain. Physical therapy was requested. Patient and family were agreeable to short-term rehab if required. Patient reports pain is well-tolerated. Patient is doing well this morning (06/11) and is ready for discharge. Physical Exam Urinary Catheter Management: Ford: Cath Placed During This Visit: yes, but has since been removed by the nurse Reason for Continuing Indwelling Catheter: Other Urinary Catheter Date of Insertion: 06/08/24 Urinary Catheter Time of Insertion: 03:20 Date Urinary Catheter Removed: 06/09/24 Time Urinary Catheter Discontinued: 06:00 Discharge Data Studies Completed and Pending Completed Studies During Hospitalization Category Date Time Status CT bony pelvis [id number] Stat Cat Scan 06/08/24 01:34 Completed XR chest 1V portable [id number] Stat Exams 06/08/24 02:00 Completed XR hip LT 2-3V wo/w pel* [id number] Routine Exams 06/08/24 09:15 Completed XR hip LT 2-3V wo/w pel* [id number] Stat Exams 06/07/24 22:10 Completed Radiology Impressions Pelvis CT 06/08/24 01:34 IMPRESSION: 1. Comminuted left intertrochanteric femur fracture. 2. Decreased bone density. Chest X-Ray 06/08/24 02:00 IMPRESSION: Discoid atelectasis left lung base. Hip/Pelvis X-Ray 06/08/24 09:15 IMPRESSION: Intertrochanteric fracture with fixation without abnormality. Laboratory Results WBC 7.03 10^3/uL (3.29-11.43) 06/11/24 05:55 RBC 2.98 10^6/uL (3.85-5.65) L 06/11/24 05:55 Hgb 9.40 g/dL (11.27-16.99) L 06/11/24 05:55 Hct 28.0 % (37-53) L 06/11/24 05:55 MCV 94.0 fl (82-101) 06/11/24 05:55 MCH 31.5 pg (27-33) 06/11/24 05:55 MCHC 33.6 g/dL (30-55) 06/11/24 05:55 RDW 14.1 % (12.1-15.1) 06/11/24 05:55 Plt Count 105 10^3/cmm (157-399) L 06/11/24 05:55 MPV 9.5 fL (7.4-10.4) 06/11/24 05:55 Neut % (Auto) 66.1 % 06/11/24 05:55 Lymph % (Auto) 20.3 % 06/11/24 05:55 [place] % (Auto) 8.0 % 06/11/24 05:55 Eos % (Auto) 4.8 % 06/11/24 05:55 Baso % (Auto) 0.4 % 06/11/24 05:55 Neut # (Auto) 4.64 10^3/uL (1.8-7.7) 06/11/24 05:55 Lymph # (Auto) 1.4 10^3/uL (0.8-4.8) 06/11/24 05:55 [place] # (Auto) 0.6 10^3/uL (0.2-0.9) 06/11/24 05:55 Eos # (Auto) 0.3 10^3/uL (0.0-0.8) 06/11/24 05:55 Baso # (Auto) 0.0 10^3/uL (0.0-0.1) 06/11/24 05:55 Nucleated RBC % (auto) 0 % 06/11/24 05:55 Nucleated RBCs # 0.0 /100WBC 06/11/24 05:55 PT 14.30 SECONDS (12.1-14.9) 06/08/24 02:12 INR 1.04 (0.8-1.2) 06/08/24 02:12 Sodium 135 mmol/L (136-145) L 06/11/24 05:55 Potassium 4.0 mmol/L (3.5-5.1) 06/11/24 05:55 Chloride 103 mmol/L (98-107) 06/11/24 05:55 Carbon Dioxide 21 mmol/L (22-29) L 06/11/24 05:55 Anion Gap 15.0 (5-19) 06/11/24 05:55 BUN 22 mg/dL (8-23) 06/11/24 05:55 Creatinine 0.8 mg/dL (0.7-1.2) 06/11/24 05:55 GFR Calculation Not Reportable 06/11/24 05:55 Glucose 98 mg/dL (65-115) 06/11/24 05:55 Calculated Osmolality 283 mOsm/kg (285-295) L 06/11/24 05:55 Calcium 8.1 mg/dL (8.5-10.5) L 06/11/24 05:55 Magnesium 2.0 mg/dL (1.7-2.3) 06/11/24 05:55 Total Bilirubin 0.7 mg/dL (0.15-1.2) 06/10/24 06:08 AST 30 U/L (0-40) 06/10/24 06:08 ALT 22 U/L (0-41) 06/10/24 06:08 Alkaline Phosphatase 66 U/L (40-130) 06/10/24 06:08 Total Protein 5.1 g/dL (6.6-8.7) L 06/10/24 06:08 Albumin 3.2 g/dL (3.5-5.2) L 06/10/24 06:08 Globulin 1.9 g/dL (1.3-4.6) 06/10/24 06:08 Vitamin B12 310 pg/mL (232-1245) 06/08/24 01:03 Urine Color Yellow (Yellow) 06/08/24 18:35 Urine Appearance Clear (CLEAR) 06/08/24 18:35 Urine pH 5.0 (5-7) 06/08/24 18:35 Ur Specific [place] 1.036 (1.005-1.030) H 06/08/24 18:35 Urine Protein Trace (Negative) A 06/08/24 18:35 Urine Glucose (UA) 3+ (Normal) H 06/08/24 18:35 Urine Ketones Trace (Negative) 06/08/24 18:35 Urine Blood 1+ (Negative) A 06/08/24 18:35 Urine Nitrate Negative (Negative) 06/08/24 18:35 Urine Bilirubin Negative (Negative) 06/08/24 18:35 Urine Urobilinogen 1.0 mg/dL (Negative) 06/08/24 18:35 Ur Leukocyte Esterase Negative (Negative) 06/08/24 18:35 Urine RBC 11-20 /hpf (0-2) H 06/08/24 18:35 Urine WBC 51-100 /hpf (0-5) H 06/08/24 18:35 Ur Squamous Epith Cells 0-5 /hpf (0-5) 06/08/24 18:35 Amorphous Sediment Not Reportable 06/08/24 18:35 Urine Bacteria None seen /hpf (NONE) 06/08/24 18:35 Hyaline Casts 0-4 /lpf H 06/08/24 18:35 Adenovirus (PCR) Not detected (NOT DETECT) 06/08/24 18: C. pneumoniae DNA (PCR) Not detected (NOT DETECT) 06/08/24 18: Coronavirus 229E (PCR) Not detected (NOT DETECT) 06/08/24 18: Human Metapneumovir PCR Not detected (NOT DETECT) 06/08/24 18: Influenza A (H1) PCR Not detected (NOT DETECT) 06/08/24 18:25 Influ A (H1/09) PCR Not detected (NOT DETECT) 06/08/24 18:25 Influenza A (H3) PCR Not detected (NOT DETECT) 06/08/24 18:25 Influenza Type A (PCR) Not detected (NOT DETECT) 06/08/24 18:25 Influenza Type B (PCR) Not detected (NOT DETECT) 06/08/24 18:25 M. pneumoniae (PCR) Not detected (NOT DETECT) 06/08/24 18: Parainfluenza 1 (PCR) Not detected (NOT DETECT) 06/08/24 18:25 Parainfluenza 2 (PCR) Not detected (NOT DETECT) 06/08/24 18: Parainfluenza 3 (PCR) Not detected (NOT DETECT) 06/08/24 18: Parainfluenza 4 (PCR) Not detected (NOT DETECT) 06/08/24 18:25 RSV Type A (PCR) Not detected (NOT DETECT) 06/08/24 18: RSV Type B (PCR) Not detected (NOT DETECT) 06/08/24 18:25 Entero/Rhino (PCR) Not detected (NOT DETECT) 06/08/24 18:25 SARS-CoV-2 (PCR) Not detected (NOT DETECT) 06/08/24 18:25 Vitals Last Vital Signs Temp 97.5 F L 06/11/24 07:55 Pulse 89 06/11/24 07:55 Resp 16 06/11/24 07:55 BP 133/72 06/11/24 07:55 Pulse Ox 96 06/11/24 07:55 O2 Del Method Room Air 06/11/24 07:55 Discharge Plan Discharge Patient Disposition: Home Condition: Stable Prescriptions: No Action aspirin 325 mg tablet 325 mg PO DAILY tamsulosin 0.4 mg capsule See Rx Instructions .ROUTE .COMPLEX Qty: 90 3RF Dose Instruction: Take 1 capsule by mouth once daily at bedtime Rx Instructions: Take 1 capsule by mouth once daily at bedtime Referrals: Andrea Carreno MD [Primary Care Provider] - Patient Instructions: Opioid Safety, Acute Wound Care (DC), Post Anesthesia Care Coding Level of Care Code Acute Code for Chg Fwd Diagnoses Closed hip fracture S72.002A Encounter type: initial encounter Laterality: left Documented by User: Keren Downey MD 06/11/24 12:04 Diagnoses at Discharge Discharge Diagnosis (1) Closed hip fracture: Status: Acute Qualifiers: Encounter type: initial encounter Laterality: left Qualified Code(s): S72.002A - Fracture of unspecified part of neck of left femur, initial encounter for closed fracture Reason for Visit Reason for Visit: Fall,Numbness,Pain Hospital Course Hospital Course Roc Arreaga is an 89 y/o M with no significant PMHx who presented to the ER on 06/07 for evaluation post mechanical fall with left hip pain. Patient fell down landed on his left hip and was unable to move his hip and leg without pain. Hip/Pelvis X-Ray showed evidence of suspected nondisplaced incomplete hip fracture. Further evaluation with Pelvis CT showed comminuted left intertrochanteric femur fracture and decreased bone density. IV fluid was administered and continued for hydration. Orthopedics was consulted and surgery was recommended. Patient tolerated procedure well. Patient was febrile post operation and showed evidence of atelectasis in left lung base on CXR. Patient was started on empiric levofloxacin and perioperative prophylaxis with clindamycin was discontinued. Respiratory viral panel was negative. DVT prophylaxis with aspirin. Post-op day 3, patient was able to walk with walker with minimal pain. Physical therapy was requested. Patient and family were agreeable to short-term rehab if required. Patient reports pain is well- tolerated. Patient is doing well this morning (06/11) and is ready for discharge. Physical Exam Narrative: Awake and alert S1, S2 Currently on room air Pleasant and cooperative Low extremity no neurovascular compromise Pleasant and cooperative No sign of stroke Abdomen soft Patient's at bedside. GCS 15 AOx4 Urinary Catheter Management: Ford: Cath Placed During This Visit: yes, but has since been removed by the nurse Discharge Plan Discharge Patient Disposition: Home Condition: Stable Prescriptions: No Action aspirin 325 mg tablet 325 mg PO DAILY tamsulosin 0.4 mg capsule See Rx Instructions .ROUTE .COMPLEX Qty: 90 3RF Dose Instruction: Take 1 capsule by mouth once daily at bedtime Rx Instructions: Take 1 capsule by mouth once daily at bedtime Referrals: Andrea Carreno MD [Primary Care Provider] - Patient Instructions: Opioid Safety, Acute Wound Care (DC), Post Anesthesia Care Discharge Attestations Time Spent in Discharge Care*: greater than 30 min Quality Metrics Clinical Quality Measures [ No reported AMI, CVA or VTE this stay] Coding Level of Care Code Acute Code for Chg Fwd Diagnoses Closed hip fracture S72.002A Encounter type: initial encounter Laterality: left
--- NOTE | 2024-06-11 11:12 | P.PN_ITS ---
Subjective 2 Subjective: Roc is doing well today. No major complaints. They indicate that the rn oncology said that they found placement and he will be ready for transfer tomorrow if all goes well. Medications: Reviewed: Yes Vitals/I&O/Wt Last Vital Signs Temp 97.5 F L 06/11/24 07:55 Pulse 89 06/11/24 07:55 Resp 16 06/11/24 07:55 BP 133/72 06/11/24 07:55 Pulse Ox 96 06/11/24 07:55 O2 Del Method Room Air 06/11/24 07:55 06/10/24 06/11/24 06/11/24 22:59 06:59 14:59 Intake Total 300 / 420 120 / 540 120 / 120 Output Total 1000 / 1375 200 / 1575 Balance -700 / -955 -80 / -1035 120 / 120 Weight last 48 hrs Weight 144 lb 11.2 oz Weight 138 lb Physical Exam 2 Narrative: On orthopedic exam today patient has sleeping in bed. He is comfortable. Viewing of his dressings indicate they are dry clear. No other gross abnormalities are noted at this time. Urinary Catheter Management: Ford: Cath Placed During This Visit: yes, but has since been removed by the nurse Reason for Continuing Indwelling Catheter: Other Urinary Catheter Date of Insertion: 06/08/24 Urinary Catheter Time of Insertion: 03:20 Date Urinary Catheter Removed: 06/09/24 Time Urinary Catheter Discontinued: 06:00 Data 06/11/24 05:55 06/11/24 05:55 Micro: Microbiology 06/08/24 18:35 Urine Culture - Final Urine,Clean Catch A&P Assessment and plan (1) Closed hip fracture: Patient is doing well since the time of surgery this past weekend. He indicates that he can now lift that operative leg on his own. [facility] has reported to them that they have a placement for him for short-term rehab stay. Patient is ready for discharge from an orthopedic standpoint. Qualifiers: Encounter type: initial encounter Laterality: left Qualified Code(s): S72.002A - Fracture of unspecified part of neck of left femur, initial encounter for closed fracture Plan Plan at this time is continue with physical therapy. Transfer to short-term rehab as soon as he excepted and he is ready medically. PDMP PDMP Reviewed: Not Reviewed Attestations 2 Medical Necessity Statement*: Medical necessity is necessary for ADLs as well as continue physical therapy. Coding Level of Care Code 38512 Diagnoses Closed hip fracture S72.002A Encounter type: initial encounter Laterality: left
[2024-06-11 11:56] VITALS: BP 135/63; PULSE 92; RESP 18; TEMP 36.4; O2SAT 97
--- NOTE | 2024-06-11 12:59 | PC.NURSE ---
Report called to REINA Bazzi at [facility]. Ready transport to be here around 1500 to pick pt up. advised.
--- NOTE | 2024-06-11 15:04 | PC.NURSE ---
Ready transport here to [facility] pt. Pt taken by W/C to transport van. leaves with all belongings. senior care packet sent with pt.
[2024-06-11 15:05] VITALS: BP 139/77; PULSE 64; RESP 18; TEMP 36.4; O2SAT 98
== END 2024-06-11 15:07 | disposition skilled nursing facility (03) | DRG 481 ==
LOC: ER 06-08 02:53 → MEDSURG 06-08 03:37
PROVIDERS: Orthopaedic Surgery; Student in an Organized Health Care Education/Training Program; Admitting Provider Internal Medicine; Emergency Provider Emergency Medicine; PCP Family Medicine; Visit Provider Internal Medicine
PROC: 0QS704Z Reposition Left Upper Femur with Internal Fixation Device, Open Approach (ICD-10-PCS; CPT 27245; principal; 2024-06-08 09:00)
DX: S72.142A Displaced intertrochanteric fracture of left femur, initial encounter for closed fracture (principal); J93.9 Pneumothorax, unspecified; N13.8 Other obstructive and reflux uropathy; W18.30XA Fall on same level, unspecified, initial encounter; Z91.81 History of falling; Y92.003 Bedroom of unspecified non-institutional (private) residence as the place of occurrence of the external cause; N40.1 Benign prostatic hyperplasia with lower urinary tract symptoms
CPT/HCPCS: 36415; 51702; 71045; 72192; 73502; 76000; 80048; 80053; 81001; 82607; 83735; 85025; 85610; 87086; 87486; 87581; 87633; 93005; 96374; 96375; 97116; 97161; 97167; 97530; 97535; 99285; C1713; J1100; J1956; J2270; J2405; J2704; J3010; J3490; J7030

== ENCOUNTER → 2024-06-24 08:33 | Outpatient (BNVA) | payer MEDICARE, OTHER, SELFPAY | PROVIDERS: PCP Family Medicine; Visit Provider Orthopaedic Surgery | DX: S72.002D Fracture of unspecified part of neck of left femur, subsequent encounter for closed fracture with routine healing (principal); Z98.890 Other specified postprocedural states; X58.XXXD Exposure to other specified factors, subsequent encounter | CPT/HCPCS: 73502; 99024 ==

== ENCOUNTER → 2024-07-22 08:22 | Outpatient (BNVA) | payer MEDICARE, OTHER, SELFPAY | PROVIDERS: PCP Family Medicine; Visit Provider Orthopaedic Surgery | DX: Z98.890 Other specified postprocedural states (principal); Z87.81 Personal history of (healed) traumatic fracture | CPT/HCPCS: 73502; 99024 ==

== ENCOUNTER → 2024-08-22 08:57 | Outpatient (BNVA) | payer MEDICARE, OTHER, SELFPAY | PROVIDERS: PCP Family Medicine; Visit Provider Orthopaedic Surgery | DX: Z87.81 Personal history of (healed) traumatic fracture (principal) | CPT/HCPCS: 99024 ==

== ENCOUNTER 2024-09-06 10:45 | Outpatient (RCR) | payer MEDICARE, OTHER, SELFPAY | END 2024-09-28 23:59 | disposition home or self-care (01) | LOC: SPT 10:45 | PROVIDERS: Visit Provider Orthopaedic Surgery | DX: Z98.890 Other specified postprocedural states (principal) | CPT/HCPCS: 97110; 97116; 97161; 97530 ==

== ENCOUNTER → 2024-09-12 08:52 | Outpatient (BNVA) | payer MEDICARE, OTHER, SELFPAY | PROVIDERS: PCP Family Medicine; Visit Provider Orthopaedic Surgery | DX: Z87.81 Personal history of (healed) traumatic fracture (principal) | CPT/HCPCS: 99024 ==